=== PATIENT | female | born 1970 | race Caucasian/White ===

== ENCOUNTER → 2018-04-12 | Day surgery (SDC) | payer OTHER ==
[~2018-04-12] MED LIST: FENTANYL CITRATE INJ/PF 250 MCG/5 ML AMPULE ONE; LIDOCAINE 1% INJ-PF (10 MG/ML) 30 ML SDV ONE; MIDAZOLAM 2 MG/2 ML INJ ONE; OXYCODONE-ACETAMINOPHEN 5-325 MG TABLET ONE
[2018-04-12 08:59] LABS: HEMATOCRIT 28.9 % (36.0-47.0); HEMOGLOBIN 9.9 g/dL (12.0-15.5); MEAN CORPUSCULAR HEMOGLOBIN 35.7 pg (27.0-33.4); MEAN CORPUSCULAR HGB CONC 34.2 g/dL (32.0-36.0); MEAN CORPUSCULAR VOLUME 104 fl (80-97); PLATELET COUNT 307 10^3/uL (150-450); RED BLOOD COUNT 2.77 10^6/uL (3.72-5.28); RED CELL DISTRIBUTION WIDTH 14.6 % (11.5-14.0); WHITE BLOOD COUNT 3.1 10^3/uL (4.0-10.5)
[2018-04-12 09:18] LABS: BLOOD UREA NITROGEN 19 mg/dL (7-20)
[2018-04-12 09:26] LABS: INTERNATIONAL RATION (INR) 1.01; PROTHROMBIN TIME 13.8 SEC (11.4-15.4)
[2018-04-12 09:27] LABS: PARTIAL THROMBOPLASTIN TIME 27.5 SEC (23.5-35.8)
--- NOTE | 2018-04-12 13:38 | RADIOLOGY REPORT (SQ) ---
EXAM DESCRIPTION: CT BIOPSY BONE MARROW, NEEDLE; CT NEEDLE PLACEMENT COMPLETED DATE/TIME: 04/12/2018 11:47 am; 04/12/2018 11:46 am REASON FOR STUDY: ANEMIA; ANEMIA, BONE MARROW BIOPSY D63.8 ANEMIA IN OTHER CHRONIC DISEASES CLASSIF IED ELSEWHERE COMPARISON: None. TECHNIQUE: CT guided biopsy of the right iliac crest bone marrow performed with conscious sedation. CT Fluoroscopy Time: 2.[address] scanners at this facility use dose modulation, iterative reconstruction, and/or weight based d osing when appropriate to reduce radiation dose to as low as reasonably achievable (ALARA). [facility]: Dose Right [facility]: CareDose [facility]: Dose Right [facility]: Teradose 4D [facility]: [employer] RADIATION DOSE: mGy. FINDINGS: After obtaining informed consent and explaining the risks and benefits of conscious sedati on,the patient agreed to the procedure. Prior to the procedure, a time out was performed to verify th e patient's identity and planned procedure. IV conscious sedation was administered and physician direction by the registered nurse using 2 millig ivy of Versed and 100 micrograms of fentanyl. Physiologic monitoring was provided before, during, an d after sedation. The total sedation time was 30 minutes. Documentation face to face time, the performing proceduralist, spent monitoring the patient: [address] scanning was performed to localize the percutaneous site for the biopsy approach. After sterile skin prep and local lidocaine for skin and deep tissue anesthesia, a coaxial biopsy nee dle was used to obtain a bone marrow aspirate, and a bone marrow core of tissue. The biopsy tissue wa s received by [facility] lab to be sent out for evaluation. There were no immediate complications. Pathology is pending at the time of dictation. IMPRESSION: CT GUIDED ASPIRATE AND CORE BIOPSY OF THE RIGHT POSTERIOR ILIAC CREST BONE MARROW PERFOR MED WITHOUT IMMEDIATE COMPLICATION. PATHOLOGY PENDING. IV CONSCIOUS SEDATION WITHOUT COMPLICATION. COMMENT: Quality ID 145: Final reports for procedures using fluoroscopy that document radiation exp osure indices, or exposure time and number of fluorographic images (if radiation exposure indices are not available) Patient medication list reviewed: Yes- Quality ID# [id number]:Eligible professional attests to documenting i n the medical record they obtained, updated, or reviewed the patient's current medications.. TECHNICAL DOCUMENTATION: JOB ID: [id number] Quality ID# [id number]: Final reports with documentation of one or more dose reduction techniques (e.g., Aut omated exposure control, adjustment of the mA and/or kV according to patient size, use of iterative r econstruction technique) 2010 [employer]- All Rights Reserved Reading location - IP/workstation name: [email or web address]
--- NOTE | 2018-04-12 13:38 | RADIOLOGY REPORT (SQ) ---
EXAM DESCRIPTION: CT BIOPSY BONE MARROW, NEEDLE; CT NEEDLE PLACEMENT COMPLETED DATE/TIME: 04/12/2018 11:47 am; 04/12/2018 11:46 am REASON FOR STUDY: ANEMIA; ANEMIA, BONE MARROW BIOPSY D63.8 ANEMIA IN OTHER CHRONIC DISEASES CLASSIF IED ELSEWHERE COMPARISON: None. TECHNIQUE: CT guided biopsy of the right iliac crest bone marrow performed with conscious sedation. CT Fluoroscopy Time: 2.[address] scanners at this facility use dose modulation, iterative reconstruction, and/or weight based d osing when appropriate to reduce radiation dose to as low as reasonably achievable (ALARA). [facility]: Dose Right [facility]: CareDose [facility]: Dose Right [facility]: Teradose 4D [facility]: [employer] RADIATION DOSE: mGy. FINDINGS: After obtaining informed consent and explaining the risks and benefits of conscious sedati on,the patient agreed to the procedure. Prior to the procedure, a time out was performed to verify th e patient's identity and planned procedure. IV conscious sedation was administered and physician direction by the registered nurse using 2 millig ivy of Versed and 100 micrograms of fentanyl. Physiologic monitoring was provided before, during, an d after sedation. The total sedation time was 30 minutes. Documentation face to face time, the performing proceduralist, spent monitoring the patient: [address] scanning was performed to localize the percutaneous site for the biopsy approach. After sterile skin prep and local lidocaine for skin and deep tissue anesthesia, a coaxial biopsy nee dle was used to obtain a bone marrow aspirate, and a bone marrow core of tissue. The biopsy tissue wa s received by [facility] lab to be sent out for evaluation. There were no immediate complications. Pathology is pending at the time of dictation. IMPRESSION: CT GUIDED ASPIRATE AND CORE BIOPSY OF THE RIGHT POSTERIOR ILIAC CREST BONE MARROW PERFOR MED WITHOUT IMMEDIATE COMPLICATION. PATHOLOGY PENDING. IV CONSCIOUS SEDATION WITHOUT COMPLICATION. COMMENT: Quality ID 145: Final reports for procedures using fluoroscopy that document radiation exp osure indices, or exposure time and number of fluorographic images (if radiation exposure indices are not available) Patient medication list reviewed: Yes- Quality ID# [id number]:Eligible professional attests to documenting i n the medical record they obtained, updated, or reviewed the patient's current medications.. TECHNICAL DOCUMENTATION: JOB ID: [id number] Quality ID# 436: Final reports with documentation of one or more dose reduction techniques (e.g., Aut omated exposure control, adjustment of the mA and/or kV according to patient size, use of iterative r econstruction technique) 2010 [employer]- All Rights Reserved Reading location - IP/workstation name: [email or web address]
[2018-04-12 14:02] VITALS: BP 114/79
== END ==
LOC: RAD 08:26
PROVIDERS: ATTEND Internal Medicine Medical Oncology
DX: D63.8 Anemia in other chronic diseases classified elsewhere (principal)
CPT/HCPCS: 36415; 84520; 82565; 85027; 85610; 85730; 38221; 77012; J2250; J3010; J3490

== ENCOUNTER 2019-09-04 16:23 | Inpatient (IN) | payer OTHER ==
--- NOTE | 2019-09-04 16:50 | ER Document Report ---
ED Medical Screen (RME) - General Chief Complaint: Chest Pain Stated Complaint: CHEST PAIN/NAUSEA Time Seen by Provider: 09/04/19 16:41 Primary Care Provider: DAVID BUNDY FNP [Primary Care Provider] - Follow up as needed Mode of Arrival: Wheelchair Information source: Patient Notes: 48-year-old female presents emergency department with complaints of full body ac hes and pains chest pain. She reports that she recently discharged herself from [facility]. She reports she was being treated for a staph infection and she is not sure what else. Patient has a PICC line in place with nafcillin running. Patient reports over a week ago she fell and hit her head and took herself to the emergency department the next day. She reports they ran some labs and adm itted her. She reports that she was there for about a week and she is not sure why. Patient reports she felt close that and checked herself out. She is now complaining of full body pain with nausea and vomiting. I have greeted and performed a rapid initial assessment of this patient. A comprehensive ED assessment and evaluation of the patient, analysis of test results and completion of the medical decision making process will be conducted by additional ED providers. TRAVEL OUTSIDE OF THE [place] IN LAST 30 DAYS: No - Related Data Allergies/Adverse Reactions: No Known Allergies Allergy (Verified 08/08/15 10:48) Home Medications: Nafcilin IV Past Medical History - Social History Chew tobacco use (# tins/day): No Frequency of alcohol use: Social Drug Abuse: None - Past Medical History Cardiac Medical History: Reports: Hx Hypercholesterolemia, Hx Hypertension - HX OF, NOT CURRENT Denies: Hx Atrial Fibrillation, Hx Congestive Heart Failure, Hx Coronary Artery Disease, Hx Heart Attack, Hx Peripheral Vascular Disease, Hx Pulmonary Embolism, Hx Heart Murmur Pulmonary Medical History: Reports: Hx Pneumonia - HX OF Denies: Hx Asthma, Hx Bronchitis, Hx COPD, Hx Respiratory Failure, Hx Sleep Apnea, Hx Tuberculosis Neurological Medical History: Denies: Hx Cerebrovascular Accident, Hx Seizures, Hx Parkinson's Disease Endocrine Medical History: Denies: Hx Graves' Disease, Hx Hyperthyroidism, Hx Hypothyroidism Renal/ Medical History: Denies: Hx End Stage Renal Disease, Hx Kidney Stones, Hx Ovarian Cysts, Hx Peritoneal Dialysis, Hx Pelvic Inflammatory Disease Malignancy Medical History: Denies: Hx Breast Cancer, Hx Cervical Cancer, Hx Leukemia, Hx Lung Cancer, Hx Ovarian Cancer GI Medical History: Reports: Hx Gastroesophageal Reflux Disease. Denies: Hx Crohn's Disease, Hx Hepatitis, Hx Hiatal Hernia, Hx Irritable Bowel, Hx Liver Failure, Hx Pancreatitis, Hx Ulcer Musculoskeltal Medical History: Denies Hx Arthritis, Denies Hx Fibromyalgia, Denies Hx Multiple Sclerosis, Denies Hx Muscular Dystrophy, Denies Hx Systemic Lupus Erythematosus Psychiatric Medical History: Reports: Hx Anxiety, Hx Bipolar Disorder, Hx Depression Denies: Hx Dementia, Hx Post Traumatic Stress Disorder, Hx Schizophrenia Traumatic Medical History: Reports: Hx Fractures - LEFT HAND Infectious Medical History: Denies: Hx Hepatitis, Hx HIV Past Surgical History: Reports: Hx Hysterectomy, Hx Orthopedic Surgery - let hip. Denies: Hx Appendectomy, Hx Bowel Surgery, Hx Section, Hx Cholecystectomy, Hx Colostomy, Hx Coronary Artery Bypass Graft, Hx Gastric Bypass Surgery, Hx Herniorrhaphy, Hx Mastectomy, Hx Open Heart Surgery, Hx Pacemaker, Hx Tonsillectomy, Hx Tubal Ligation - Immunizations Hx Diphtheria, Pertussis, Tetanus Vaccination: Yes Doctor's Discharge - Discharge Referrals: DAVID BUNDY FNP [Primary Care Provider] - Follow up as needed
--- NOTE | 2019-09-04 17:46 | RADIOLOGY REPORT (SQ) ---
EXAM DESCRIPTION: CHEST 2 VIEWS COMPLETED DATE/TIME: 09/04/2019 4:24 pm REASON FOR STUDY: chest pain COMPARISON: 08/08/2015 EXAM PARAMETERS: NUMBER OF VIEWS: two views TECHNIQUE: Digital Frontal and Lateral radiographic views of the chest acquired. RADIATION DOSE: NA LIMITATIONS: none FINDINGS: LUNGS AND PLEURA: No opacities, masses or pneumothorax. No pleural effusion. MEDIASTINUM AND HILAR STRUCTURES: No masses or contour abnormalities. HEART AND VASCULAR STRUCTURES: Heart normal size. No evidence for failure. BONES: No acute findings. HARDWARE: None in the chest. OTHER: No other significant finding. IMPRESSION: NO ACUTE RADIOGRAPHIC FINDING IN THE CHEST. TECHNICAL DOCUMENTATION: JOB ID: [id number] [employer]- All Rights Reserved Reading location - IP/workstation name: [id number]
[2019-09-04 18:09] LABS: ABSOLUTE BASOPHILS # (AUTO) 0.1 10^3/uL (0.0-0.2); ABSOLUTE LYMPHOCYTES (AUTO) 1.4 10^3/uL (0.5-4.7); ABSOLUTE MONOCYTES (AUTO) 0.8 10^3/uL (0.1-1.4); ABSOLUTE NEUT (AUTO) 4.1 10^3/uL (1.7-8.2); BASOPHILS % (AUTO) 1.1 % (0-2); EOSINOPHILS % (AUTO) 0.3 % (0-6); HEMATOCRIT 26.1 % (36.0-47.0); HEMOGLOBIN 8.6 g/dL (12.0-15.5); LYMPHOCYTES % (AUTO) 21.4 % (13-45); MEAN CORPUSCULAR HEMOGLOBIN 38.2 pg (27.0-33.4); MEAN CORPUSCULAR HGB CONC 33.1 g/dL (32.0-36.0); MONOCYTES % (AUTO) 13.1 % (3-13); PLATELET COUNT 755 10^3/uL (150-450); RED BLOOD COUNT 2.26 10^6/uL (3.72-5.28); RED CELL DISTRIBUTION WIDTH 15.1 % (11.5-14.0); SEGMENTED NEUTROPHILS % (AUTO) 64.1 % (42-78); TOTAL CELLS COUNTED % (AUTO) 100 %; WHITE BLOOD COUNT 6.4 10^3/uL (4.0-10.5)
[2019-09-04] MEDS ORDERED: ONDANSETRON 4 MG TAB.RAPDIS PO ONE (18:24)
[2019-09-04 18:27] LABS: ALBUMIN 2.6 g/dL (3.5-5.0); ALKALINE PHOSPHATASE 314 U/L (38-126); ANION GAP 11 (5-19); ASPARTATE AMINO TRANSFERASE 53 U/L (14-36); BILIRUBIN,DIRECT 0.9 mg/dL (0.0-0.4); BILIRUBIN,TOTAL 0.9 mg/dL (0.2-1.3); BLOOD UREA NITROGEN 11 mg/dL (7-20); CALCIUM 8.6 mg/dL (8.4-10.2); CARBON DIOXIDE 16 mmol/L (22-30); CHLORIDE 114 mmol/L (98-107); GLUCOSE 83 mg/dL (75-110); POTASSIUM 3.9 mmol/L (3.6-5.0); TOTAL PROTEIN 5.5 g/dL (6.3-8.2)
[2019-09-04 18:32] LABS: ANISOCYTOSIS SLIGHT; PLATELET COMMENT INCREASED
[2019-09-04 18:33] LABS: MEAN CORPUSCULAR VOLUME 115 fl (80-97)
[2019-09-04 18:56] LABS: APPEARANCE,URINE SLIGHTLY-CLOUDY; BILIRUBIN,URINE NEGATIVE (NEGATIVE); COLOR,URINE YELLOW; GLUCOSE, URINE NEGATIVE (NEGATIVE); KETONES,URINE TRACE mg/dL (NEGATIVE); LEUKOCYTE ESTERASE,URINE TRACE (NEGATIVE); NITRITE,URINE NEGATIVE (NEGATIVE); PROTEIN,URINE 30 mg/dL (NEGATIVE); URINE SPECIFIC GRAVITY 1.032; UROBILINOGEN,URINE NEGATIVE mg/dL (<2.0)
--- NOTE | 2019-09-04 19:48 | ER Document Report ---
ED General <LENO PARRISH - Last Filed: 09/05/19 06:12> - General Mode of Arrival: Wheelchair TRAVEL OUTSIDE OF THE [place].S[place] IN LAST 30 DAYS: No - Related Data Home Medications: Nafcilin IV <MARK CONTEH - Last Filed: 09/05/19 10:06> - General Chief Complaint: Chest Pain Stated Complaint: CHEST PAIN/NAUSEA Time Seen by Provider: 09/04/19 16:41 Notes: Patient is a 48-year-old female who presents to the emergency department with a chief complaint of chest pain and nausea. Patient states that she just does not feel right. She was recently admitted to [facility] for a we ek, where they were giving her antibiotics for a "staph infection" as per patient. Patient ended up leaving on her own because she did not have a private room and it gave her anxiety. She is currently on nafcillin at home via PICC line. Patient is a poor historian. (YADYMARK Terrell) - Related Data Allergies/Adverse Reactions: No Known Allergies Allergy (Verified 09/04/19 22:50) Past Medical History - General Information source: Patient - Social History Smoking Status: Never Smoker Chew tobacco use (# tins/day): No Frequency of alcohol use: Social Drug Abuse: None Family History: Reviewed & Not Pertinent Patient has suicidal ideation: No Patient has homicidal ideation: No - Past Medical History Cardiac Medical History: Reports: Hx Hypercholesterolemia, Hx Hypertension - HX OF, NOT CURRENT Denies: Hx Atrial Fibrillation, Hx Congestive Heart Failure, Hx Coronary Artery Disease, Hx Heart Attack, Hx Peripheral Vascular Disease, Hx Pulmonary Embolism, Hx Heart Murmur Pulmonary Medical History: Reports: Hx Pneumonia - HX OF Denies: Hx Asthma, Hx Bronchitis, Hx COPD, Hx Respiratory Failure, Hx Sleep Apnea, Hx Tuberculosis Neurological Medical History: Denies: Hx Cerebrovascular Accident, Hx Seizures, Hx Parkinson's Disease Endocrine Medical History: Denies: Hx Graves' Disease, Hx Hyperthyroidism, Hx Hypothyroidism Renal/ Medical History: Denies: Hx End Stage Renal Disease, Hx Kidney Stones, Hx Ovarian Cysts, Hx Peritoneal Dialysis, Hx Pelvic Inflammatory Disease Malignancy Medical History: Denies: Hx Breast Cancer, Hx Cervical Cancer, Hx Leukemia, Hx Lung Cancer, Hx Ovarian Cancer GI Medical History: Reports: Hx Gastroesophageal Reflux Disease. Denies: Hx Crohn's Disease, Hx Hepatitis, Hx Hiatal Hernia, Hx Irritable Bowel, Hx Liver Failure, Hx Pancreatitis, Hx Ulcer Musculoskeletal Medical History: Denies Hx Arthritis, Denies Hx Fibromyalgia, Denies Hx Multiple Sclerosis, Denies Hx Muscular Dystrophy, Denies Hx Systemic Lupus Erythematosus Psychiatric Medical History: Reports: Hx Anxiety, Hx Bipolar Disorder, Hx Depression Denies: Hx Dementia, Hx Post Traumatic Stress Disorder, Hx Schizophrenia Traumatic Medical History: Reports: Hx Fractures - LEFT HAND Infectious Medical History: Denies: Hx Hepatitis, Hx HIV Past Surgical History: Reports: Hx Hysterectomy, Hx Orthopedic Surgery - let hip. Denies: Hx Appendectomy, Hx Bowel Surgery, Hx Section, Hx Cholecystectomy, Hx Colostomy, Hx Coronary Artery Bypass Graft, Hx Gastric Bypass Surgery, Hx Herniorrhaphy, Hx Mastectomy, Hx Open Heart Surgery, Hx Pacemaker, Hx Tonsillectomy, Hx Tubal Ligation - Immunizations Hx Diphtheria, Pertussis, Tetanus Vaccination: Yes <MARK CONTEH - Last Filed: 09/05/19 10:06> Review of Systems <MARK CONTEH - Last Filed: 09/05/19 10:06> - Review of Systems Notes: REVIEW OF SYSTEMS: CONSTITUTIONAL : Denies recent illness. Denies recent unintentional weight loss. Denies fever, chills, or sweats. EENT: Denies eye, ear, throat, or mouth pain, discharge, or symptoms. Denies nasal or sinus congestion. CARDIOVASCULAR: See HPI. RESPIRATORY: Denies shortness of breath, cough, congestion, difficulty breathing, or wheezing. GASTROINTESTINAL: See HPI. GENITOURINARY: Denies difficulty urinating, burning, blood in urine, urgency or frequency. MUSCULOSKELETAL: Denies neck and back pain. Denies joint pain or swelling. SKIN: Denies rash, itchiness, or lesions HEMATOLOGIC : Denies easy bruising or bleeding. LYMPHATIC: Denies swollen, painful, enlarged glands. NEUROLOGICAL: Denies no numbness or tingling denies weakness. Denies headache. Denies altered mental status. Denies alteration in speech. PSYCHIATRIC: Denies stress, anxiety, alteration in sleep patterns, or depression. All other systems reviewed and negative. (MARK CONTEH) Physical Exam <MARK CONTEH - Last Filed: 09/05/19 10:06> - Vital signs Vitals: Resp BP Pulse Ox 18 126/77 H 100 09/04/19 17:47 09/04/19 17:47 09/04/19 17:47 - Notes Notes: PHYSICAL EXAMINATION: GENERAL: Appears well, healthy, well-nourished, no acute distress. HEAD: Normocephalic, atraumatic. EYES: PERRL, conjunctiva normal, all extraocular movements intact, sclera nonicteric ENT: Moist mucous membranes. NECK: Supple, no noticeable swelling, redness, rash. Normal range of motion. LUNGS: Equal breath sounds bilaterally and clear to auscultation. No wheezes rales or rhonchi. CARDIOVASCULAR: S1-S2, regular rate, regular rhythm. Radial pulses 2+, normal. ABDOMEN: Normoactive bowel sounds. Soft, very tender left lower quadrant, no guarding, no rebound tenderness, and no masses palpated. EXTREMITIES: Normal strength and range of motion, no pitting or edema. No cyanosis. NEUROLOGICAL: Moves all extremities upon command. Strength 5/5 in all extremities. PSYCH: Normal mood, normal affect. SKIN: Warm, dry. No rash, lesions, ulcerations noted. Normal skin turgor. (MARK CONTEH) Course - Laboratory Result Diagrams: 09/04/19 17:44 09/04/19 17:44 <LENO PARRISH - Last Filed: 09/05/19 06:12> - Laboratory Result Diagrams: 09/04/19 17:44 09/04/19 17:44 <MARK CONTEH - Last Filed: 09/05/19 10:06> - Re-evaluation Re-evalutation: 09/05/19 06:[address] Aguilera. Patient is now requesting morphine for her pain. She will be given 4 mg IV morphine with a another liter of fluids while we await for her interventional radiology draining of iliopsoas abscess. (LENO PARRISH) 09/04/19 22:[address] Weiss the orthopedic surgeon on-call here in the emergency department. He is recommending the patient be transferred to [facility], where she had her surgery. 09/04/19 22:40 I spoke with [facility] transfer center and they are at capacity at this time. The orthopedic surgeon will be contacted. Will await callback. 09/04/19 23:[address] Mark, the orthopedic surgeon it application administrator at [facility]. He states she had her hip surgery done in June 2018. He states that this is not an orthopedic issue at this time. Recommending I call . He is recommending interventional radiology to drain the abcess. 09/04/19 23:34 Called [facility] transfer center. Awaiting callback from ED or hospitalist physician. 09/05/19 00:[address] Stephen, the hospitalist physician over at [facility]. She states that the patient was actually discharged on August 31 from their facility. She was in the facility after a fall and was being treated for bacteremia. She apparently has not gone to their follow-up visits. She also states that they do not have interventional radiology in the hospital at [place]. 09/05/19 00:[address] Roth, the hospitalist physician. He states that the patient does not need to be admitted based off her labs. He states that the patient should follow-up outpatient. I discussed this with Dr. Aquino and he is recommending that I speak with [facility]. 09/05/19 01:18 Spoke with [facility] and they are recommending that since we have interventional radiology, that the patient have it done here. Relayed this information on to Dr. Abraham. He is recommending speaking with Dr. Bernardo. 09/05/19 01:30 I have spoke with Dr. Bernardo, the surgeon it application administrator. He is in agreement that the correct course of action is to have the patient admitted to the hospitalist and have IR drain the abcess. He is also recommending that I speak to the radiologist to clarify if it is a hematoma or abcess. 09/05/19 01:[address] Lopez, as Dr. Ruiz is not in at this time. She reviewed the films and states she is leaning toward an abcess, but there is no way to te ll unless it is drained. 09/05/19 02:17 Dr. Aquino spoke with Dr. Roth again and does not want to admit the patient. At this time, the patient will have orders to have IR drain the abscess. Report given to LD Richardson. (MARK CONTEH) - Vital Signs Vital signs: Temp Pulse Resp BP Pulse Ox 98.6 F 19 119/69 100 09/05/19 06:01 09/05/19 09:31 09/05/19 09:31 09/05/19 09:31 - Laboratory Laboratory results interpreted by me: 09/04/19 09/04/19 09/04/19 17:44 17:44 17:44 RBC 2.26 L Hgb 8.6 L Hct 26.1 L MCV 115 H MCH 38.2 H RDW 15.1 H Plt Count 755 H Spink % (Auto) 13.1 H APTT VBG pH VBG pCO2 VBG HCO3 Chloride 114 H Carbon Dioxide 16 L Lactic Acid Direct Bilirubin 0.9 H AST 53 H Alkaline Phosphatase 314 H Creatine Kinase < 20 L Total Protein 5.5 L Albumin 2.6 L Urine Protein Urine Ketones Ur Leukocyte Esterase Urine Ascorbic Acid 09/04/19 09/04/19 09/05/19 18:29 20:55 02:43 RBC Hgb Hct MCV MCH RDW Plt Count Spink % (Auto) APTT 58.4 H VBG pH 7.28 L VBG pCO2 31.6 L VBG HCO3 14.5 L Chloride Carbon Dioxide Lactic Acid Direct Bilirubin AST Alkaline Phosphatase Creatine Kinase Total Protein Albumin Urine Protein 30 H Urine Ketones TRACE H Ur Leukocyte Esterase TRACE H Urine Ascorbic Acid 40 H 09/05/19 08:35 RBC Hgb Hct MCV MCH RDW Plt Count Spink % (Auto) APTT VBG pH VBG pCO2 VBG HCO3 Chloride Carbon Dioxide Lactic Acid < 0.5 L Direct Bilirubin AST Alkaline Phosphatase Creatine Kinase Total Protein Albumin Urine Protein Urine Ketones Ur Leukocyte Esterase Urine Ascorbic Acid Discharge <LENO PARRISH - Last Filed: 09/05/19 06:12> <MARK CONTEH - Last Filed: 09/05/19 10:06> - Discharge Clinical Impression: Iliopsoas abscess on right, Thrombocytosis, Metabolic acidosis Nausea and vomiting Qualifiers: Vomiting type: unspecified Vomiting Intractability: non-intractable Qualified Code(s): R11.2 - Nausea with vomiting, unspecified Condition: Stable Disposition: ADMITTED INPATIENT
[2019-09-04] MEDS ORDERED: NORMAL SALINE 1000 ML 1,000 ML IV ONE (20:02)
[2019-09-04 20:35] LABS: CREATINE KINASE < 20 U/L (30-135)
--- NOTE | 2019-09-04 21:13 | RADIOLOGY REPORT (SQ) ---
EXAM DESCRIPTION: CT ABDOMEN PELVIS WITH IV CONTRAST COMPLETED DATE/TME: 09/04/2019 20:01 CLINICAL HISTORY: 48 years, Female, abdominal tenderness This exam was performed according to our departmental dose-optimization program which includes automated exposure control, adjustment of the mA and/or kVp according to patient size and/or use of iterative reconstruction technique where applicable. FINDINGS: Visualized lung bases are within normal limits. Liver, spleen, pancreas, gallbladder, adrenal glands and kidneys are within normal limits. No hydronephrosis or biliary dilatation. Postoperative changes status post gastric changes. No dilated loops of bowel to suggest obstruction. Mild amount of stool in the colon. No abdominal or pelvic lymphadenopathy. No free fluid or free air. There is a fluid collection in the left iliopsoas muscle measuring about 7 x 5 cm, consistent with abscess. Status post left hip arthroplasty. Pelvic bones are intact. Lumbar vertebral body heights are intact with no significant erosive changes. IMPRESSION: Left iliopsoas abscess is noted.
[2019-09-04 21:23] LABS: VENOUS BLOOD BASE EXCESS -10.9 mmol/L; VENOUS BLOOD HCO3 14.5 mmol/L (20-32); VENOUS BLOOD PCO2 31.6 mmHg (35-63); VENOUS BLOOD PH 7.28 (7.30-7.42)
[2019-09-04] MEDS ORDERED: MORPHINE SULFATE 10 MG/ML INJ IV ONE (21:40)
[2019-09-04] MEDS ORDERED: PIPERACILLIN/TAZOBACTAM 3.375 GM VIAL IV ONE (22:47)
[2019-09-04] MEDS ORDERED: VANCOMYCIN HCL INJ 1000 MG VIAL IV ONE (22:47)
--- NOTE | 2019-09-05 00:17 | EKG REPORT ---
SEVERITY:- BORDERLINE ECG - SINUS RHYTHM BORDERLINE T ABNORMALITIES, INFERIOR LEADS BORDERLINE PROLONGED QT INTERVAL : Confirmed by: Live Villegas 05-Sep-2019 00:17:03
[2019-09-05] MEDS ORDERED: MORPHINE SULFATE 10 MG/ML INJ IV ONE ×2 (02:29→06:09)
[2019-09-05 02:59] LABS: INTERNATIONAL RATION (INR) 1.15; PROTHROMBIN TIME 14.8 SEC (11.4-15.4)
[2019-09-05 03:00] LABS: PARTIAL THROMBOPLASTIN TIME 58.4 SEC (23.5-35.8)
[2019-09-05] MEDS ORDERED: NORMAL SALINE 10 ML SDV (AFTER EACH USE) IV PRN (03:30)
[2019-09-05] MEDS ORDERED: NORMAL SALINE 500 ML IV ONE (06:11)
[2019-09-05] MEDS ORDERED: FENTANYL CITRATE INJ/PF 100 MCG/2 ML AMPUL IV ONE (06:44)
--- NOTE | 2019-09-05 08:45 | ER Document Report ---
ED General - General Chief Complaint: Chest Pain Stated Complaint: CHEST PAIN/NAUSEA Time Seen by Provider: 09/04/19 16:41 Primary Care Provider: DAVID BUNDY FNP [Primary Care Provider] - Follow up as needed Mode of Arrival: Wheelchair TRAVEL OUTSIDE OF THE [place] IN LAST 30 DAYS: No - HPI Notes: Patient is a 48-year-old female who presents to the emergency department for evaluation of chest pain, right flank and back pain, abdominal pain. The pat ient has a complicated recent medical history. She was recently at [facility]. She was admitted for hypotension, septic shock. She was treated for what became an eventual MSSA bacteremia. No obvious source was found. She had a UTI which resolved. When her bacteremia was noted she was put on IV nafcillin, home health is set up. Evidently she left the hospital AGAINST MEDICAL ADVICE. - Related Data Allergies/Adverse Reactions: No Known Allergies Allergy (Verified 09/04/19 22:50) Home Medications: Nafcilin IV Past Medical History - General Information source: Patient - Social History Smoking Status: Never Smoker Chew tobacco use (# tins/day): No Frequency of alcohol use: Heavy - No alcohol in 2 weeks Drug Abuse: None Family History: Reviewed & Not Pertinent Patient has suicidal ideation: No Patient has homicidal ideation: No - Medical History Medical History: Other - Macrocytic anemia - Past Medical History Cardiac Medical History: Reports: Hx Hypercholesterolemia, Hx Hypertension - HX OF, NOT CURRENT Denies: Hx Atrial Fibrillation, Hx Congestive Heart Failure, Hx Coronary Artery Disease, Hx Heart Attack, Hx Peripheral Vascular Disease, Hx Pulmonary Embolism, Hx Heart Murmur Pulmonary Medical History: Reports: Hx Pneumonia - HX OF Denies: Hx Asthma, Hx Bronchitis, Hx COPD, Hx Respiratory Failure, Hx Sleep Apnea, Hx Tuberculosis Neurological Medical History: Denies: Hx Cerebrovascular Accident, Hx Seizures, Hx Parkinson's Disease Endocrine Medical History: Denies: Hx Graves' Disease, Hx Hyperthyroidism, Hx Hypothyroidism Renal/ Medical History: Denies: Hx End Stage Renal Disease, Hx Kidney Stones, Hx Ovarian Cysts, Hx Peritoneal Dialysis, Hx Pelvic Inflammatory Disease Malignancy Medical History: Denies: Hx Breast Cancer, Hx Cervical Cancer, Hx Leukemia, Hx Lung Cancer, Hx Ovarian Cancer GI Medical History: Reports: Hx Gastroesophageal Reflux Disease. Denies: Hx Crohn's Disease, Hx Hepatitis, Hx Hiatal Hernia, Hx Irritable Bowel, Hx Liver Failure, Hx Pancreatitis, Hx Ulcer Musculoskeletal Medical History: Denies Hx Arthritis, Denies Hx Fibromyalgia, Denies Hx Multiple Sclerosis, Denies Hx Muscular Dystrophy, Reports Hx Muscle Weakness - Left foot drop, left hip trochanteric bursitis, Denies Hx Systemic Lupus Erythematosus Psychiatric Medical History: Reports: Hx Anxiety, Hx Bipolar Disorder, Hx Depression Denies: Hx Dementia, Hx Post Traumatic Stress Disorder, Hx Schizophrenia Traumatic Medical History: Reports: Hx Fractures - LEFT HAND Infectious Medical History: Denies: Hx Hepatitis, Hx HIV Past Surgical History: Reports: Hx Hysterectomy, Hx Orthopedic Surgery - let hip. Denies: Hx Appendectomy, Hx Bowel Surgery, Hx Section, Hx Cholecystectomy, Hx Colostomy, Hx Coronary Artery Bypass Graft, Hx Gastric Bypass Surgery, Hx Herniorrhaphy, Hx Mastectomy, Hx Open Heart Surgery, Hx Pacemaker, Hx Tonsillectomy, Hx Tubal Ligation - Immunizations Hx Diphtheria, Pertussis, Tetanus Vaccination: Yes Review of Systems - Review of Systems Constitutional: Chills EENT: No symptoms reported Cardiovascular: See HPI Respiratory: See HPI Gastrointestinal: See HPI Genitourinary: See HPI Female Genitourinary: No symptoms reported Musculoskeletal: See HPI Skin: No symptoms reported Neurological/Psychological: No symptoms reported Physical Exam - Vital signs Vitals: Resp BP Pulse Ox 18 126/77 H 100 09/04/19 17:47 09/04/19 17:47 09/04/19 17:47 - Notes Notes: Is a 48-year-old female who appears her stated age in acute distress. Vital signs reviewed, please refer to chart. Head is normocephalic, atraumatic. Pupils equal round, reactive to light. Neck is supple without meningismus. Heart is regular rate and rhythm. Lungs are clear to auscultation bilaterally. Abdomen is soft, moderately tender throughout the entire right side without rebound or guarding, normoactive bowel sounds throughout. Right CVA tenderness noted. Extremities without cyanosis, clubbing. Posterior calves are nontender. Peripheral pulses are equal. Skin is warm and dry. Patient is awake, alert, cooperative with examiner. Course - Re-evaluation Re-evalutation: 09/05/19 08:51 Patient presented to the emergency department for evaluation. We did receive information and in regards to inpatient care of her at [facility]. The patient had an MSSA bacteremia, was being treated as an outpatient with nafcillin after she left AGAINST MEDICAL ADVICE. The patient has had worsened pain. She has had 4 episodes of nonbloody, nonbilious emesis in the last 24 hours. She is not tolerating all of these antibiotics well either according to the patient. She was originally seen by nurse practitioner [facility]. Imaging revealed a right iliopsoas abscess. This was most amenable to drainage by IR. Please see [employer] note in regards to multiple consultations made in regards to appropriate disposition of this patient. I did speak with Dr. Toney, radiologist who will be performing this interventional his procedure. He is in full agreement with me that this patient does meet admission criteria, will need admission for IV antibiotics and cultures in regards to her abscess. I spoke with Dr. Gibson, who happily accepted the patient. - Vital Signs Vital signs: Temp Pulse Resp BP Pulse Ox 98.6 F 17 113/75 100 09/05/19 06:01 09/05/19 08:30 09/05/19 08:30 09/05/19 08:30 - Laboratory Result Diagrams: 09/04/19 17:44 09/04/19 17:44 Laboratory results interpreted by me: 09/04/19 09/04/19 09/04/19 17:44 17:44 17:44 RBC 2.26 L Hgb 8.6 L Hct 26.1 L MCV 115 H MCH 38.2 H RDW 15.1 H Plt Count 755 H [place] % (Auto) 13.1 H APTT VBG pH VBG pCO2 VBG HCO3 Chloride 114 H Carbon Dioxide 16 L Direct Bilirubin 0.9 H AST 53 H Alkaline Phosphatase 314 H Creatine Kinase < 20 L Total Protein 5.5 L Albumin 2.6 L Urine Protein Urine Ketones Ur Leukocyte Esterase Urine Ascorbic Acid 09/04/19 09/04/19 09/05/19 18:29 20:55 02:43 RBC Hgb Hct MCV MCH RDW Plt Count [place] % (Auto) APTT 58.4 H VBG pH 7.28 L VBG pCO2 31.6 L VBG HCO3 14.5 L Chloride Carbon Dioxide Direct Bilirubin AST Alkaline Phosphatase Creatine Kinase Total Protein Albumin Urine Protein 30 H Urine Ketones TRACE H Ur Leukocyte Esterase TRACE H Urine Ascorbic Acid 40 H - EKG Interpretation by Me Additional EKG results interpreted by me: 09/05/19 08:54 Sinus mechanism with a rate of 97 bpm. Normal axis, borderline QT interval prolongation. Nonspecific ST changes, but no acute changes concerning for infarction. Discharge - Discharge Clinical Impression: Iliopsoas abscess on right, Thrombocytosis, Metabolic acidosis Nausea and vomiting Qualifiers: Vomiting type: unspecified Vomiting Intractability: non-intractable Qualified Code(s): R11.2 - Nausea with vomiting, unspecified Condition: Stable Disposition: ADMITTED INPATIENT Admitting Provider: Paige (Hospitalist) Unit Admitted: IMCU Referrals: DAVID BUNDY FNP [Primary Care Provider] - Follow up as needed
[2019-09-05 09:27] LABS: URINE AMPHETAMINES SCREEN NEGATIVE; URINE BARBITURATES SCREEN NEGATIVE; URINE COCAINE SCREEN NEGATIVE; URINE MARIJUANA (THC) SCREEN NEGATIVE; URINE METHADONE SCREEN NEGATIVE; URINE PHENCYCLIDINE SCREEN NEGATIVE
[2019-09-05 09:31] LABS: URINE BENZODIAZEPINES SCREEN UNCONFIRMED POSITIVE
[2019-09-05] MEDS: NORMAL SALINE 10 ML SDV (SCHEDULED) IV SCH ×2 (09:55→22:42)
[2019-09-05] MEDS ORDERED: MORPHINE SULFATE 10 MG/ML INJ IV PRN (10:10)
[2019-09-05] MEDS ORDERED: KETOROLAC TROMETHAMINE INJ/PF 30 MG/1 ML SDV IV PRN (10:10)
[2019-09-05] MEDS ORDERED: FENTANYL CITRATE INJ/PF 100 MCG/2 ML AMPUL ONE ×2 (10:13→10:32)
[2019-09-05] MEDS ORDERED: MIDAZOLAM 2 MG/2 ML INJ ONE ×2 (10:13→10:32)
--- NOTE | 2019-09-05 11:43 | RADIOLOGY REPORT (SQ) ---
EXAM DESCRIPTION: CT DRAINAGE RETRO/PERITONEAL COMPLETED DATE/TIME: 09/05/2019 11:16 am REASON FOR STUDY: iliopsoas abcess drainage COMPARISON: CT dated 09/04/2019 FLUORO TIME: 4.2 seconds 24 images saved to PACS. LIMITATIONS: None. PROCEDURE: After obtaining informed consent, the patient was brought to the CT suite and was placed supine on the CT gurney. The patient was prepped and draped in the usual sterile fashion . Axial gracie ges were obtained for targeting of theleft psoas abscess. An appropriate access site was selected. I V conscious sedation was administered and physician direction by the registered nurse using 3.0 raymundo grams of Versed and 100 micrograms of fentanyl. Physiologic monitoring was provided before, during, a nd after sedation. The total sedation time was 15 minutes. Documentation face to face time, the performing proceduralist, spent monitoring the patient: 15minute s. The abscess was localized using CT fluoroscopic guidance. 1% lidocaine was used for local anesthesia . Using a 19 gauge vascular access needle the abscess was cannulated. A guidewire was placed sequen tial dilatation performed and a 10 Persian APD catheter placed. Samples were obtained and sent to [facility] for evaluation. There were no complications. Catheter was secured to the skin and connected to accordion drainage bag. IMPRESSION: Successful CT-guided catheter placement for drainage of the left psoas abscess. COMMENT: Patient medication list reviewed:Yes- Quality ID# 130:Eligible professional attests to docu menting in the medical record they obtained, updated, or reviewed the patient's current medications. Quality ID #76: The patient was prepped and draped using maximum sterile barrier technique including cap, mask, sterile gown, sterile gloves, a large sterile sheet, hand hygiene, and 2% Chlorhexidine fo r cutaneous antisepsis. When ultrasound is used, sterile ultrasound techniques are followed requiring sterile gel and sterile probes. Quality ID 145: Final reports for procedures using fluoroscopy that document radiation exposure sloan armando, or exposure time and number of fluorographic images (if radiation exposure indices are not avail able) Quality ID# 436: Final reports with documentation of one or more dose reduction techniques (e.g., Aut omated exposure control, adjustment of the mA and/or kV according to patient size, use of iterative r econstruction technique) TECHNICAL DOCUMENTATION: JOB ID: [id number] [employer] (?)- All Rights Reserved rev-12/09 Reading location - IP/workstation name: [email or web address]
--- NOTE | 2019-09-05 13:04 | PDOC H&P ---
History of Present Illness Admission Date/PCP: 09/05/19 08:58 LD DE LEÓN Patient complains of: abdominal pain History of Present Illness: BRITTNEY GOINS is a 48 year old female with a past medical history of depression and bipolar disorder who presented with increasing abdominal pain. Patient was recently admitted at the [facility]. She apparently left AMA and was discharged with a PICC line and to complete IV nafcillin therapy at home for Staphylococcus bacteremia. She presented to the ER with complaints of " not feeling well" and increasing left lower abdominal pain. She denies fever or chills at home. In the ER, she was noted to have a left psoas abscess. Past Medical History Cardiac Medical History: Reports: Hyperlipidema, Hypertension - HX OF, NOT CURRENT Denies: Atrial Fibrillation, Congestive Heart Failure, Coronary Artery Disease, Myocardial Infarction, Peripheral Vascular Disease, Pulmonary Embolism, Heart Murmur Pulmonary Medical History: Reports: Pneumonia - HX OF Denies: Asthma, Bronchitis, Chronic Obstructive Pulmonary Disease (COPD), Respiratory Failure, Sleep Apnea, Tuberculosis Neurological Medical History: Denies: Seizures Endocrine Medical History: Denies: Hyperthyroidism, Hypothyroidism Renal/ Medical History: Denies: End Stage Renal Disease Malignancy Medical History: Denies: Breast Cancer, Cervical Cancer, Leukemia, Lung Cancer, Ovarian Cancer GI Medical History: Reports: Gastroesophageal Reflux Disease Denies: Crohn's Disease, Hepatitis, Hiatal Hernia Musculoskeltal Medical History: Denies: Arthritis, Fibromyalgia Psychiatric Medical History: Reports: Bipolar Disorder, Depression Denies: Dementia, Post Traumatic Stress Disorder Hematology: Reports: Anemia Denies: Hemophilia, Sickle Cell Disease Infectious Medical History: Denies: HIV Past Surgical History Past Surgical History: Reports: Hysterectomy, Orthopedic Surgery - let hip Denies: Amputation, Appendectomy, Section, Cholecystectomy, Colostomy, Coronary Artery Bypass Graft, Gastric Bypass Surgery, Herniorrhaphy, Mastectomy, Pacemaker, Tonsillectomy, Tubal Ligation Social History Smoking Status: Never Smoker Electronic Cigarette use?: No Hx Recreational Drug Use: No Hx Prescription Drug Abuse: No Family History Family History: Reviewed & Not Pertinent Parental Family History Reviewed: Yes - No premature CAD Children Family History Reviewed: No Sibling(s) Family History Reviewed.: No Medication/Allergy Home Medications: Esomeprazole Magnesium [Nexium] 40 mg PO DAILY 11/01/12 Folic Acid/Multivit,Iron,Milfay [One Daily For Women Tablet] 1 each PO DAILY 11/01/12 Lamotrigine [Lamictal 100 Mg Tablet] 200 mg PO Q12 11/01/12 Zolpidem Tartrate [Ambien 10 mg Tablet] 1 tab PO QHS 11/01/12 B-Complex with Vitamin C [Super B Complex-Vitamin C] 1 each PO DAILY 08/08/15 Cholecalciferol (Vitamin D3) [Vitamin D3 2000 unit Tablet] 2,000 unit PO DAILY 08/08/15 Cranberry [Cranberry 500 mg Capsule] 500 mg PO DAILY 08/08/15 Cyanocobalamin (Vitamin B-12) [Vitamin B12] 2,500 mcg PO DAILY 08/08/15 Iron 65 mg PO DAILY 08/08/15 Methylphenidate HCl [Methylphenidate ER] 20 mg PO 08/08/15 [place]-3 Acid Ethyl Esters [Lovaza 1 gm Capsule] 1 gm PO DAILY 08/08/15 Oxycodone HCl 10 mg PO PRN 08/08/15 Ubidecarenone [Co Q-10] 100 mg PO DAILY 08/08/15 Diazepam [Valium 5 mg Tablet] 5 mg PO BID 09/05/19 Fluoxetine HCl 20 mg PO DAILY 09/05/19 Melatonin mg PO QHS 09/05/19 Naloxone HCl [Narcan] 4 mg NASL ASDIR PRN 09/05/19 Ziprasidone HCl [Geodon 40 mg Capsule] 40 mg PO Q12 09/05/19 Allergies/Adverse Reactions: No Known Allergies Allergy (Verified 09/04/19 22:50) Review of Systems All systems: reviewed and no additional remarkable complaints except as stated - As mentioned in HPI Physical Exam Vital Signs: Temp Pulse Resp BP Pulse Ox 98.6 F 19 119/69 100 09/05/19 06:01 09/05/19 09:31 09/05/19 09:31 09/05/19 09:31 Intake & Output 09/04/19 09/05/19 09/06/19 06:59 06:59 06:59 Intake Total 1000 500 Balance 1000 500 Weight 174 lb 2.643 oz General appearance: PRESENT: no acute distress, well-developed, well-nourished Head exam: PRESENT: atraumatic, normocephalic Eye exam: PRESENT: conjunctiva pink, EOMI, PERRLA. ABSENT: scleral icterus Ear exam: PRESENT: normal external ear exam Mouth exam: PRESENT: moist, tongue midline Neck exam: ABSENT: carotid bruit, JVD, lymphadenopathy, thyromegaly Respiratory exam: PRESENT: clear to auscultation rhona. ABSENT: rales, rhonchi, wheezes Cardiovascular exam: PRESENT: RRR. ABSENT: diastolic murmur, rubs, systolic murmur Pulses: PRESENT: normal dorsalis pedis pul GI/Abdominal exam: PRESENT: normal bowel sounds, soft, tenderness - Direct left lower quadrant tenderness. ABSENT: distended, guarding, mass, organolmegaly, rebound Rectal exam: PRESENT: deferred Extremities exam: PRESENT: full ROM. ABSENT: calf tenderness, clubbing, pedal edema Neurological exam: PRESENT: alert, awake, oriented to person, oriented to place, oriented to time, oriented to situation, CN II-XII grossly intact. ABSENT: motor sensory deficit Results Laboratory Results: 09/04/19 17:44 09/04/19 17:44 09/04/19 09/04/19 09/04/19 17:44 17:44 18:29 WBC 6.4 RBC 2.26 L Hgb 8.6 L Hct 26.1 L MCV 115 H MCH 38.2 H MCHC 33.1 RDW 15.1 H Plt Count 755 H Seg Neutrophils % 64.1 VBG pH VBG pCO2 VBG HCO3 VBG Base Excess Sodium 140.8 Potassium 3.9 Chloride 114 H Carbon Dioxide 16 L Anion Gap 11 BUN 11 Creatinine 0.75 Est GFR ( Amer) > 60 Glucose 83 Lactic Acid Calcium 8.6 Total Bilirubin 0.9 AST 53 H Alkaline Phosphatase 314 H Total Protein 5.5 L Albumin 2.6 L Urine Color YELLOW Urine Appearance SLIGHTLY-CLOUDY Urine pH 5.0 Ur Specific [place] 1.032 Urine Protein 30 H Urine Glucose (UA) NEGATIVE Urine Ketones TRACE H Urine Blood NEGATIVE Urine Nitrite NEGATIVE Ur Leukocyte Esterase TRACE H Urine WBC (Auto) 11 Urine RBC (Auto) 1 09/04/19 09/05/19 20:55 08:35 WBC RBC Hgb Hct MCV MCH MCHC RDW Plt Count Seg Neutrophils % VBG pH 7.28 L VBG pCO2 31.6 L VBG HCO3 14.5 L VBG Base Excess -10.9 Sodium Potassium Chloride Carbon Dioxide Anion Gap BUN Creatinine Est GFR ( Amer) Glucose Lactic Acid < 0.5 L Calcium Total Bilirubin AST Alkaline Phosphatase Total Protein Albumin Urine Color Urine Appearance Urine pH Ur Specific [place] Urine Protein Urine Glucose (UA) Urine Ketones Urine Blood Urine Nitrite Ur Leukocyte Esterase Urine WBC (Auto) Urine RBC (Auto) 09/04/19 09/04/19 17:44 17:44 Creatine Kinase < 20 L Troponin I < 0.012 Impressions: Chest X-Ray 09/04/19 16:47 IMPRESSION: NO ACUTE RADIOGRAPHIC FINDING IN THE CHEST. Abdomen/Pelvis CT 09/04/19 20:01 IMPRESSION: Left iliopsoas abscess is noted. Assessment and Plan - Diagnosis (1) Iliopsoas abscess on left Is this a current diagnosis for this admission?: Yes Plan: Request records from [facility]. Patient is scheduled for drainage by interventional radiology today. Will place patient on Zosyn for now. Will de- escalated antibiotics pending records from the [facility] and culture results. (2) Bipolar disorder Is this a current diagnosis for this admission?: Yes Plan: Resume home meds once verified. - Time Time Spent with patient: 25-34 minutes
[2019-09-05 14:26] LABS: PATH REVIEW PATHOLOGIST REVIEWED
[2019-09-05] MEDS ORDERED: (PENDING PHARMACY ID) (Acetaminophen [Tylenol Extra Strength 500 Mg Tablet] 500 MG) PO PRN (14:26)
[2019-09-05] MEDS ORDERED: ACETAMINOPHEN 325 MG TABLET PO PRN (14:43)
[2019-09-05] MEDS: PIPERACILLIN SODIUM/TAZOBACTAM 3.375 GM in NORMAL SALINE 100 ML IV SCH ×2 (15:16→19:49)
[2019-09-05] MEDS ORDERED: ALTEPLASE INJ 2 MG VIAL (CATH CLEARANCE) IV ONE (18:00)
[2019-09-05] MEDS: HEPARIN SOD (PORCINE) 5,000 UNIT/ML 1 ML VIAL SUBCUT SCH ×2 (18:12→22:39)
[2019-09-05] MEDS: DIAZEPAM 5 MG TABLET PO SCH (18:15)
[2019-09-05] MEDS: OXYCODONE HCL IR 5 MG TABLET PO PRN (20:08)
[2019-09-05] MEDS ORDERED: OXYCODONE HCL SR 10 MG TABLET PO SCH (22:00)
[2019-09-05] MEDS ORDERED: (PENDING PHARMACY ID) (Zolpidem Tartrate [Ambien 10 Mg Tablet] 10 MG) PO SCH (22:00)
[2019-09-05] MEDS: ZOLPIDEM TARTRATE 5 MG TABLET PO SCH ×2 (22:35→22:45)
[2019-09-05] MEDS: MELATONIN 3 MG TABLET PO SCH (22:38)
[2019-09-05] MEDS: ZIPRASIDONE HCL 40 MG CAPSULE PO SCH (22:39)
[2019-09-05] MEDS: LAMOTRIGINE 100 MG TABLET PO SCH (22:40)
[2019-09-06] MEDS: PIPERACILLIN SODIUM/TAZOBACTAM 3.375 GM in NORMAL SALINE 100 ML IV SCH ×5 (00:54→23:26)
[2019-09-06] MEDS: HEPARIN SOD (PORCINE) 5,000 UNIT/ML 1 ML VIAL SUBCUT SCH ×3 (05:48→23:25)
[2019-09-06] MEDS: PANTOPRAZOLE SODIUM 40 MG TABLET.DR PO SCH (05:48)
[2019-09-06] MEDS: OXYCODONE HCL IR 5 MG TABLET PO PRN ×2 (05:51→18:36)
[2019-09-06] MEDS ORDERED: METHYLPHENIDATE HCL 20 MG PO SCH (06:00)
[2019-09-06 06:21] LABS: ABSOLUTE LYMPHOCYTES (AUTO) 1.4 10^3/uL (0.5-4.7); ABSOLUTE MONOCYTES (AUTO) 0.5 10^3/uL (0.1-1.4); ABSOLUTE NEUT (AUTO) 1.4 10^3/uL (1.7-8.2); BASOPHILS % (AUTO) 1.5 % (0-2); EOSINOPHILS % (AUTO) 1.2 % (0-6); LYMPHOCYTES % (AUTO) 41.3 % (13-45); MEAN CORPUSCULAR HEMOGLOBIN 37.8 pg (27.0-33.4); MEAN CORPUSCULAR HGB CONC 32.7 g/dL (32.0-36.0); MEAN CORPUSCULAR VOLUME 116 fl (80-97); MONOCYTES % (AUTO) 14.9 % (3-13); PLATELET COUNT 776 10^3/uL (150-450); RED BLOOD COUNT 2.08 10^6/uL (3.72-5.28); RED CELL DISTRIBUTION WIDTH 15.5 % (11.5-14.0); SEGMENTED NEUTROPHILS % (AUTO) 41.1 % (42-78); TOTAL CELLS COUNTED % (AUTO) 100 %; WHITE BLOOD COUNT 3.3 10^3/uL (4.0-10.5)
[2019-09-06 06:35] LABS: ALBUMIN 2.4 g/dL (3.5-5.0); ALKALINE PHOSPHATASE 253 U/L (38-126); ANION GAP 11 (5-19); ASPARTATE AMINO TRANSFERASE 19 U/L (14-36); BILIRUBIN,DIRECT 0.6 mg/dL (0.0-0.4); BILIRUBIN,TOTAL 0.6 mg/dL (0.2-1.3); BLOOD UREA NITROGEN 5 mg/dL (7-20); CALCIUM 8.7 mg/dL (8.4-10.2); CARBON DIOXIDE 15 mmol/L (22-30); CHLORIDE 115 mmol/L (98-107); POTASSIUM 4.2 mmol/L (3.6-5.0); TOTAL PROTEIN 5.1 g/dL (6.3-8.2)
[2019-09-06 06:40] LABS: GLUCOSE 65 mg/dL (75-110)
[2019-09-06 07:05] LABS: HEMOGLOBIN 7.9 g/dL (12.0-15.5)
[2019-09-06 07:09] LABS: ANISOCYTOSIS SLIGHT
[2019-09-06 07:11] LABS: PLATELET COMMENT INCREASED; TEAR DROP CELLS SLIGHT
[2019-09-06] MEDS: NORMAL SALINE 1000 ML 1,000 ML IV PRN ×2 (09:15→09:19)
[2019-09-06] MEDS: CYANOCOBALAMIN (VITAMIN B-12) 1,000 MCG TABLET PO SCH (09:19)
[2019-09-06] MEDS: LAMOTRIGINE 100 MG TABLET PO SCH ×2 (09:19→23:20)
[2019-09-06] MEDS: DOCUSATE SODIUM 100 MG CAPSULE PO SCH (09:20)
[2019-09-06] MEDS: NORMAL SALINE 10 ML SDV (SCHEDULED) IV SCH ×2 (09:21→23:06)
[2019-09-06] MEDS: ASCORBIC ACID 500 MG TABLET PO SCH (09:21)
[2019-09-06] MEDS: FLUOXETINE HCL 20 MG CAPSULE PO SCH (09:21)
[2019-09-06] MEDS: DIAZEPAM 5 MG TABLET PO SCH ×2 (09:21→18:28)
[2019-09-06] MEDS ORDERED: CRANBERRY 500 MG PO SCH (10:00)
[2019-09-06] MEDS ORDERED: (PENDING PHARMACY ID) (Cyanocobalamin (Vitamin B-12) [Vitamin B12] 2,500 MCG) PO SCH (10:00)
[2019-09-06] MEDS ORDERED: (PENDING PHARMACY ID) (Ubidecarenone [Co Q-10] 100 MG) PO SCH (10:00)
[2019-09-06] MEDS ORDERED: INFLUENZA QUAD (6MOS+) 2019-20 VAC 0.5 ML SYR IM ONE (10:11)
[2019-09-06] MEDS: ZIPRASIDONE HCL 40 MG CAPSULE PO SCH ×2 (11:48→23:28)
--- NOTE | 2019-09-06 18:01 | PDOC PROGRESS REPORT ---
Subjective Progress Note for:: 09/06/19 Subjective:: This is a 48-year-old female who was admitted for a left iliopsoas abscess. Patient underwent drainage by IR yesterday. No acute event overnight. She feels much better today. Denies chest pain or shortness of breath. On encounter this morning, drainage appears to be serosanguineous. Cultures pending. Reviewed records for [facility]. She was thought to have urinary tract infection during her recent course. She grew staph aureus on the blood but I do not see the results of sensitivity. She also had a TTE and a MARCELLA which were negative for vegetations. Reason For Visit: PSOAS ABSCESS Physical Exam Vital Signs: Temp Pulse Resp BP Pulse Ox 98.8 F 89 18 93/52 L 100 09/06/19 08:08 09/06/19 08:08 09/06/19 08:08 09/06/19 08:08 09/06/19 08:08 Intake & Output 09/05/19 09/06/19 09/07/19 06:59 06:59 06:59 Intake Total 1000 1617 527 Output Total 830 Balance 1000 787 527 Weight 174 lb 2.643 oz 155 lb 13.869 oz General appearance: PRESENT: no acute distress, well-developed, well-nourished Head exam: PRESENT: atraumatic, normocephalic Eye exam: PRESENT: conjunctiva pink, EOMI, PERRLA. ABSENT: scleral icterus Ear exam: PRESENT: normal external ear exam Mouth exam: PRESENT: moist, tongue midline Neck exam: ABSENT: carotid bruit, JVD, lymphadenopathy, thyromegaly Respiratory exam: PRESENT: clear to auscultation rhona. ABSENT: rales, rhonchi, wheezes Cardiovascular exam: PRESENT: RRR. ABSENT: diastolic murmur, rubs, systolic murmur Pulses: PRESENT: normal dorsalis pedis pul GI/Abdominal exam: PRESENT: normal bowel sounds, soft. ABSENT: distended, guarding, mass, organolmegaly, rebound, tenderness Rectal exam: PRESENT: deferred Extremities exam: PRESENT: full ROM. ABSENT: calf tenderness, clubbing, pedal e terrell Neurological exam: PRESENT: alert, awake, oriented to person, oriented to place, oriented to time, oriented to situation, CN II-XII grossly intact. ABSENT: motor sensory deficit Results Laboratory Results: 09/06/19 05:49 09/06/19 05:49 09/06/19 09/06/19 05:49 05:49 WBC 3.3 L RBC 2.08 L Hgb 7.9 L Hct 24.0 L MCV 116 H MCH 37.8 H MCHC 32.7 RDW 15.5 H Plt Count 776 H Seg Neutrophils % 41.1 L Sodium 140.9 Potassium 4.2 Chloride 115 H Carbon Dioxide 15 L Anion Gap 11 BUN 5 L Creatinine 0.66 Est GFR ( Amer) > 60 Glucose 65 L Calcium 8.7 Total Bilirubin 0.6 AST 19 Alkaline Phosphatase 253 H Total Protein 5.1 L Albumin 2.4 L 09/04/19 18:29 Clean Catch Midstream Urine Culture - Final C.albicans/C.dubliniensis 09/04/19 09/04/19 17:44 17:44 Creatine Kinase < 20 L Troponin I < 0.012 Impressions: Chest X-Ray 09/04/19 16:47 IMPRESSION: NO ACUTE RADIOGRAPHIC FINDING IN THE CHEST. Abdomen/Pelvis CT 09/04/19 20:01 IMPRESSION: Left iliopsoas abscess is noted. Retroperitoneal Abscess Drainage 09/05/19 00:00 IMPRESSION: Successful CT-guided catheter placement for drainage of the left psoas abscess. Assessment and Plan - Diagnosis (1) Iliopsoas abscess on left Is this a current diagnosis for this admission?: Yes Plan: S/P Drainage by IR. Masood Valencia. Cultures pending. Will also await for further ID recommendations. (2) Bipolar disorder Is this a current diagnosis for this admission?: Yes Plan: Resumed home meds. (3) Staphylococcus aureus bacteremia Is this a current diagnosis for this admission?: Yes Plan: Follow up on sensitivity report.
[2019-09-06] MEDS: MELATONIN 3 MG TABLET PO SCH (23:20)
[2019-09-06] MEDS: ZOLPIDEM TARTRATE 5 MG TABLET PO SCH (23:27)
[2019-09-07] MEDS: NORMAL SALINE 1000 ML 1,000 ML IV PRN (02:38)
[2019-09-07] MEDS: PIPERACILLIN SODIUM/TAZOBACTAM 3.375 GM in NORMAL SALINE 100 ML IV SCH ×4 (06:31→23:01)
[2019-09-07] MEDS: HEPARIN SOD (PORCINE) 5,000 UNIT/ML 1 ML VIAL SUBCUT SCH ×3 (06:32→22:52)
[2019-09-07] MEDS: PANTOPRAZOLE SODIUM 40 MG TABLET.DR PO SCH (06:33)
[2019-09-07] MEDS: OXYCODONE HCL IR 5 MG TABLET PO PRN ×2 (06:41→22:52)
[2019-09-07 07:56] LABS: ABSOLUTE EOSINOPHILS # (AUTO) 0.1 10^3/uL (0.0-0.6); ABSOLUTE LYMPHOCYTES (AUTO) 1.7 10^3/uL (0.5-4.7); ABSOLUTE MONOCYTES (AUTO) 0.4 10^3/uL (0.1-1.4); ABSOLUTE NEUT (AUTO) 1.1 10^3/uL (1.7-8.2); EOSINOPHILS % (AUTO) 1.9 % (0-6); HEMATOCRIT 22.1 % (36.0-47.0); LYMPHOCYTES % (AUTO) 51.8 % (13-45); MEAN CORPUSCULAR HGB CONC 31.7 g/dL (32.0-36.0); MEAN CORPUSCULAR VOLUME 117 fl (80-97); MONOCYTES % (AUTO) 12.4 % (3-13); PLATELET COUNT 749 10^3/uL (150-450); RED BLOOD COUNT 1.89 10^6/uL (3.72-5.28); RED CELL DISTRIBUTION WIDTH 15.6 % (11.5-14.0); SEGMENTED NEUTROPHILS % (AUTO) 32.9 % (42-78); TOTAL CELLS COUNTED % (AUTO) 100 %; WHITE BLOOD COUNT 3.2 10^3/uL (4.0-10.5)
[2019-09-07 08:12] LABS: ALBUMIN 2.1 g/dL (3.5-5.0); ALKALINE PHOSPHATASE 198 U/L (38-126); ANION GAP 9 (5-19); ASPARTATE AMINO TRANSFERASE 14 U/L (14-36); BILIRUBIN,DIRECT 0.5 mg/dL (0.0-0.4); BILIRUBIN,TOTAL 0.5 mg/dL (0.2-1.3); BLOOD UREA NITROGEN 5 mg/dL (7-20); CALCIUM 8.2 mg/dL (8.4-10.2); CARBON DIOXIDE 16 mmol/L (22-30); CHLORIDE 117 mmol/L (98-107); GLUCOSE 74 mg/dL (75-110); POTASSIUM 3.8 mmol/L (3.6-5.0); TOTAL PROTEIN 4.6 g/dL (6.3-8.2)
[2019-09-07 08:41] LABS: ANISOCYTOSIS SLIGHT; TOXIC VACUOLATION PRESENT
[2019-09-07 08:42] LABS: OVALOCYTES SLIGHT; PLATELET COMMENT INCREASED; POLYCHROMASIA SLIGHT; TEAR DROP CELLS SLIGHT
[2019-09-07] MEDS ORDERED: NORMAL SALINE 250 ML IV PRN ×2 (08:52)
--- NOTE | 2019-09-07 11:06 | Progress Note ---
Provider Note Provider Note: ID Telephone Consultation Note Asked by Dr. Gibson and Pharmacy to review patient's chart. Pt not seen or examined. Ms. Li Hernandez is a 48-year-old woman with PMH including s/p L hip arthroplasty who presented to [facility] on with increasing abdominal pain per H&P on 09/05/19. She was recently hospitalized at the [facility] with MSSA bacteremia suspected to be secondary from skin/soft tissue infection prior to leaving [place]. Records available to me from the [facility] are limited but included recommendations to complete 6 weeks of IV nafcillin at home. Blood cultures cleared on 08/29/19 prior to PICC placement. In the [facility] ED, she had CT abd/pelvis with IV contrast to evaluate abdominal/flank tenderness, which revealed a L iliopsoas collection 7 x 5 cm c/w abscess, and IR guided drainage was performed. Repeat blood cultures were obtained at [facility], which have been negative. Impression/Recommendations Psoas abscess secondary to complicated MSSA bacteremia in presence of L hip arthroplasty - With negative blood cultures, it would be reasonable to switch patient back to antimicrobial therapy targeted toward the MSSA alone. Can return to nafcillin 2 g q4h or 12 grams as a continuous infusion. - Psoas abscesses can be primary or secondary, arising hematogenously and seeding only the psoas abscess, but this is more common in developing countries and young adults. More often, psoas abscess raises concern that it has developed secondarily from a contiguous site, most commonly vertebral osteomy elitis/discitis and some notes include pt reporting back pain. Is pt able to undergo MRI with contrast to evaluate further? - The other potential area of concern is her L hip prosthesis. Psoas abscess can arise in association with SPIKE infection, seeded from the bacteremia. Suggest Orthopedic Surgery evaluation. - Would plan for at least 6 weeks of IV antistaphylococcal therapy as previously noted. Tentative end date 10/17/19. However, in some circumstances extending antibiotic course to 8 weeks or longer is needed based on adequacy of source control and re-evaluation. John Zepeda MD [facility] Infectious Diseases pager [phone]
[2019-09-07] MEDS: CYANOCOBALAMIN (VITAMIN B-12) 1,000 MCG TABLET PO SCH (11:18)
[2019-09-07] MEDS: DOCUSATE SODIUM 100 MG CAPSULE PO SCH (11:18)
[2019-09-07] MEDS: FLUOXETINE HCL 20 MG CAPSULE PO SCH (11:20)
[2019-09-07] MEDS: LAMOTRIGINE 100 MG TABLET PO SCH ×2 (11:21→22:51)
[2019-09-07] MEDS: ASCORBIC ACID 500 MG TABLET PO SCH (11:21)
[2019-09-07] MEDS: ZIPRASIDONE HCL 40 MG CAPSULE PO SCH ×2 (11:21→22:52)
[2019-09-07] MEDS: DIAZEPAM 5 MG TABLET PO SCH ×2 (11:21→17:40)
[2019-09-07] MEDS: NORMAL SALINE 10 ML SDV (SCHEDULED) IV SCH ×2 (11:22→22:54)
--- NOTE | 2019-09-07 13:02 | RADIOLOGY REPORT (SQ) ---
EXAM DESCRIPTION: CT ABD/PELVIS WITH IV ONLY COMPLETED DATE/TIME: 09/07/2019 9:25 am REASON FOR STUDY: psoas abscess S/P drainage by IR COMPARISON: 09/04/2019 TECHNIQUE: CT scan of the abdomen and pelvis performed using helical scanning technique with dynamic intravenous contrast injection. No oral contrast. Images reviewed with lung, soft tissue, and bone windows. Reconstructed coronal and sagittal MPR images reviewed. Delayed images for evaluation of the urinary system also acquired. All images stored on PACS. All CT scanners at this facility use dose modulation, iterative reconstruction, and/or weight based d osing when appropriate to reduce radiation dose to as low as reasonably achievable (ALARA). [facility]: Dose Right [facility]: CareDose [facility]: Dose Right [facility]: Teradose 4D [facility]: [employer] CONTRAST TYPE AND DOSE: contrast/concentration: Isovue 350.00 mg/ml; Total Contrast Delivered: 82.0 ml; Total Saline Delivered: 68.0 ml RENAL FUNCTION: GFR > 60. RADIATION DOSE: CT Rad equipment meets quality standard of care and radiation dose reduction techniq ues were employed. CTDIvol: 11.2 - 11.2 mGy. DLP: 1204 mGy-cm.. LIMITATIONS: None. FINDINGS: There has been interval placement of a percutaneous drain into the left iliopsoas fluid co llection from an anterior approach. Fluid collection is largely evacuated. No active hemorrhage. Trace pleural effusions. The appearance is otherwise unchanged. IMPRESSION: Successful drainage of iliopsoas fluid collection status post placement of percutaneous drain. TECHNICAL DOCUMENTATION: JOB ID: [id number] Quality ID # [id number]: Final reports with documentation of one or more dose reduction techniques (e.g., Au tomated exposure control, adjustment of the mA and/or kV according to patient size, use of iterative reconstruction technique) 2010 [employer]- All Rights Reserved Reading location - IP/workstation name: [email or web address]
--- NOTE | 2019-09-07 17:13 | PDOC PROGRESS REPORT ---
Subjective Progress Note for:: 09/07/19 Subjective:: This is a 48-year-old female who was admitted for a left iliopsoas abscess. Patient underwent drainage by IR yesterday. 09/06: She feels much better today. Denies chest pain or shortness of breath. On encounter this morning, drainage appears to be serosanguineous. Cultures pending. Reviewed records for [facility]. She was thought to have urinary tract infection during her recent course. She grew staph aureus on the blood but I do not see the results of sensitivity. She also had a TTE and a MARCELLA which were negative for vegetations. 09/07: No acute event overnight. She says she continues to feel better and her abdominal pain has significantly improved. Repeat CT today and will have IR re- evaluate for possible removal of drain. Reason For Visit: PSOAS ABSCESS Physical Exam Vital Signs: Temp Pulse Resp BP Pulse Ox 98.3 F 77 17 125/77 100 09/07/19 14:12 09/07/19 14:12 09/07/19 14:12 09/07/19 14:12 09/07/19 14:12 Intake & Output 09/06/19 09/07/19 09/08/19 06:59 06:59 06:59 Intake Total 1617 2187 436 Output Total 830 50 Balance 787 2137 436 Weight 155 lb 13.869 oz 158 lb 4.67 oz General appearance: PRESENT: no acute distress, well-developed, well-nourished Head exam: PRESENT: atraumatic, normocephalic Eye exam: PRESENT: conjunctiva pink, EOMI, PERRLA. ABSENT: scleral icterus Ear exam: PRESENT: normal external ear exam Mouth exam: PRESENT: moist, tongue midline Neck exam: ABSENT: carotid bruit, JVD, lymphadenopathy, thyromegaly Respiratory exam: PRESENT: clear to auscultation rhona. ABSENT: rales, rhonchi, wheezes Cardiovascular exam: PRESENT: RRR. ABSENT: diastolic murmur, rubs, systolic murmur Pulses: PRESENT: normal dorsalis pedis pul GI/Abdominal exam: PRESENT: normal bowel sounds, soft, other - + drain. ABSENT: distended, guarding, mass, organolmegaly, rebound Rectal exam: PRESENT: deferred Neurological exam: PRESENT: alert, awake, oriented to person, oriented to place, oriented to time, oriented to situation, CN II-XII grossly intact. ABSENT: motor sensory deficit Results Laboratory Results: 09/07/19 07:25 09/07/19 07:25 09/07/19 09/07/19 09/07/19 07:25 07:25 10:29 WBC 3.2 L RBC 1.89 L Hgb 7.0 L Hct 22.1 L MCV 117 H MCH 37.0 H MCHC 31.7 L RDW 15.6 H Plt Count 749 H Seg Neutrophils % 32.9 L Sodium 141.5 Potassium 3.8 Chloride 117 H Carbon Dioxide 16 L Anion Gap 9 BUN 5 L Creatinine 0.74 Est GFR ( Amer) > 60 Glucose 74 L Calcium 8.2 L Total Bilirubin 0.5 AST 14 Alkaline Phosphatase 198 H Total Protein 4.6 L Albumin 2.1 L Blood Type O NEGATIVE Antibody Screen NEGATIVE 09/04/19 18:29 Clean Catch Midstream Urine Culture - Final C.albicans/C.dubliniensis 09/04/19 09/04/19 17:44 17:44 Creatine Kinase < 20 L Troponin I < 0.012 Impressions: Chest X-Ray 09/04/19 16:47 IMPRESSION: NO ACUTE RADIOGRAPHIC FINDING IN THE CHEST. Retroperitoneal Abscess Drainage 09/05/19 00:00 IMPRESSION: Successful CT-guided catheter placement for drainage of the left psoas abscess. Abdomen/Pelvis CT 09/07/19 07:00 IMPRESSION: Successful drainage of iliopsoas fluid collection status post placement of percutaneous drain. Assessment and Plan - Diagnosis (1) Iliopsoas abscess on left Is this a current diagnosis for this admission?: Yes Plan: S/P Drainage by IR. Masood Valencia. Cultures pending. Will also await for further ID recommendations. 09/07: Repeat CT today and will have IR re-evaluate for possible removal of dick in. (2) Bipolar disorder Is this a current diagnosis for this admission?: Yes Plan: Resumed home meds. (3) Staphylococcus aureus bacteremia Is this a current diagnosis for this admission?: Yes Plan: Follow up on sensitivity report. - Time Time Spent with patient: 25-34 minutes
--- NOTE | 2019-09-07 19:10 | RADIOLOGY REPORT (SQ) ---
EXAM DESCRIPTION: PELVIS AP COMPLETED DATE/TIME: 09/07/2019 6:57 pm REASON FOR STUDY: eval of prosthesis left hip COMPARISON: None. NUMBER OF VIEWS: Two views. TECHNIQUE: Digital radiographic images of the pelvis post-procedure LIMITATIONS: None. FINDINGS: BONES: No worrisome or unexpected findings post-procedure. DEVICE: Left total hip arthroplasty. SOFT TISSUES: No worrisome findings. Expected postoperative soft tissue changes. Drain overlying lef t lower quadrant. IMPRESSION: SATISFACTORY POSTOPERATIVE PELVIS. TECHNICAL DOCUMENTATION: JOB ID: [id number] [employer]- All Rights Reserved Reading location - IP/workstation name: [email or web address]
[2019-09-07 20:19] LABS: HEMATOCRIT 23.9 % (36.0-47.0); HEMOGLOBIN 8.1 g/dL (12.0-15.5); MEAN CORPUSCULAR HEMOGLOBIN 37.1 pg (27.0-33.4); MEAN CORPUSCULAR HGB CONC 33.8 g/dL (32.0-36.0); PLATELET COUNT 767 10^3/uL (150-450); RED BLOOD COUNT 2.18 10^6/uL (3.72-5.28); RED CELL DISTRIBUTION WIDTH 20.7 % (11.5-14.0)
[2019-09-07 20:24] LABS: MEAN CORPUSCULAR VOLUME 110 fl (80-97)
[2019-09-07 20:46] LABS: ABSOLUTE LYMPHOCYTES# (MANUAL) 2.3 10^3/uL (0.5-4.7); ABSOLUTE MONOCYTES # (MANUAL) 0.2 10^3/uL (0.1-1.4); ANISOCYTOSIS 2+; BASOPHILS % (MANUAL) 0 % (0-2); EOSINOPHILS % (MANUAL) 3 % (0-6); HYPOCHROMASIA SLIGHT; LYMPHOCYTES % (MANUAL) 58 % (13-45); MONOCYTES % (MANUAL) 6 % (3-13); SEGMENTED NEUTROPHILS % (MAN) 33 % (42-78); TOTAL CELLS COUNTED 100
[2019-09-07 20:47] LABS: PLATELET COMMENT INCREASED
[2019-09-07] MEDS: MELATONIN 3 MG TABLET PO SCH (22:50)
[2019-09-07] MEDS: ZOLPIDEM TARTRATE 5 MG TABLET PO SCH (22:50)
--- NOTE | 2019-09-08 02:56 | RADIOLOGY REPORT (SQ) ---
MRI cervical spine without contrast on 09/07/2019 at 10:31 PM CLINICAL INDICATION: Iliopsoas abscess, evaluate for vertebral osteomyelitis/abscess TECHNIQUE: Multiplanar, multisequence MR images are obtained throughout the cervical spine without the administration of contrast. This examination was performed on a 1.5 Adelaide magnet. COMPARISON: CT from 02/17/2015 FINDINGS: There is mild disc desiccation and early degeneration of the cervical disks. There is a normal appearance of the craniovertebral junction. There is normal signal within the substance of the cord. There is no prevertebral soft tissue swelling. Minimal degenerative endplate changes are noted at C3-4 and C4-5. Vertebral body height, alignment and signal intensity is otherwise unremarkable. At the C3-4 level, mild broad-based disc osteophyte complex produces minimal canal stenosis. At the C4-5 level, broad-based disc osteophyte complex produces mild to moderate canal stenosis and left greater than right foraminal narrowing. At the C5-6 level, broad-based disc osteophyte complex produces mild to moderate canal stenosis and bilateral foraminal narrowing. No other levels of canal stenosis or foraminal narrowing are noted. IMPRESSION: Degenerative disc disease worse at C4-5 and C5-6 as above. No evidence to suggest discitis or osteomyelitis is noted in the cervical spine.
[2019-09-08] MEDS: PIPERACILLIN SODIUM/TAZOBACTAM 3.375 GM in NORMAL SALINE 100 ML IV SCH (06:35)
[2019-09-08] MEDS: PANTOPRAZOLE SODIUM 40 MG TABLET.DR PO SCH (06:36)
[2019-09-08] MEDS: HEPARIN SOD (PORCINE) 5,000 UNIT/ML 1 ML VIAL SUBCUT SCH ×3 (06:36→22:45)
[2019-09-08] MEDS: LAMOTRIGINE 100 MG TABLET PO SCH ×2 (09:00→22:45)
[2019-09-08] MEDS: CYANOCOBALAMIN (VITAMIN B-12) 1,000 MCG TABLET PO SCH (09:28)
[2019-09-08] MEDS: FLUOXETINE HCL 20 MG CAPSULE PO SCH (09:29)
[2019-09-08] MEDS: ASCORBIC ACID 500 MG TABLET PO SCH (09:30)
[2019-09-08] MEDS: DOCUSATE SODIUM 100 MG CAPSULE PO SCH (09:31)
[2019-09-08] MEDS: DIAZEPAM 5 MG TABLET PO SCH ×2 (09:31→17:30)
[2019-09-08] MEDS: ZIPRASIDONE HCL 40 MG CAPSULE PO SCH ×2 (09:34→22:45)
[2019-09-08] MEDS: OXYCODONE HCL IR 5 MG TABLET PO PRN ×2 (09:38→23:11)
[2019-09-08] MEDS: NORMAL SALINE 10 ML SDV (SCHEDULED) IV SCH ×2 (10:15→22:00)
--- NOTE | 2019-09-08 10:22 | RADIOLOGY REPORT (SQ) ---
EXAM DESCRIPTION: MRI THORACIC SPINE WITHOUT COMPLETED DATE/TIME: 09/07/2019 10:46 pm REASON FOR STUDY: iliopsoas abscess, r/o vertebral osteo/abscess COMPARISON: None. TECHNIQUE: Sagittal and Axial imaging includes T1, T2, STIR and gradient echo sequences. LIMITATIONS: Motion artifact. FINDINGS: LOCALIZER: No worrisome findings. ALIGNMENT: Normal. VERTEBRAE: Intact. BONE MARROW: Normal. No marrow replacement or reactive changes. HARDWARE: None in the spine. CORD: Normal in size and signal intensity. SOFT TISSUES: Small pleural effusions. THORACIC DISCS T1-T12: Several bulging disc in the lower thoracic spine. No evidence of disc herniat ion or cord compression. LOWER CERVICAL: See separate report. UPPER LUMBAR: See separate report. OTHER: No other significant finding. IMPRESSION: No acute findings. No evidence of osteomyelitis or abscess. TECHNICAL DOCUMENTATION: JOB ID: [id number] [employer]- All Rights Reserved Reading location - IP/workstation name: [email or web address]
--- NOTE | 2019-09-08 10:36 | RADIOLOGY REPORT (SQ) ---
EXAM DESCRIPTION: MRI LUMBAR SPINE WITHOUT COMPLETED DATE/TIME: 09/07/2019 10:46 pm REASON FOR STUDY: iliopsoas abscess, r/o vertebral osteo/abscess COMPARISON: None. TECHNIQUE: Sagittal and Axial imaging includes T1, T2, STIR and gradient echo sequences. Coronal T2/ HASTE imaging. LIMITATIONS: None. FINDINGS: VISUALIZED UPPER ABDOMEN: Limited evaluation. No acute or suspicious findings suggested. SEGMENTATION: No transitional anatomy. The lowest well-developed disc space is labeled L5-S1. ALIGNMENT: Anatomic. VERTEBRAE: Intact. BONE MARROW: Normal. No marrow replacement or reactive changes. DISC SIGNAL: Desiccation multiple levels. POSTERIOR ELEMENTS: Generally intact. No pars defect evident. HARDWARE: None in the spine. CORD AND CONUS: Normal in size and signal intensity. Conus at the appropriate level. SOFT TISSUES: Edema in the left iliopsoas muscle. No organized fluid collection. L1-L2: Disc bulge. No significant stenosis. L2-L3: Disc bulge. No significant stenosis. L3-L4: Mild spinal stenosis due to central annular fissure. L4-L5: Mild spinal stenosis due to central annular fissure and facet arthropathy. L5-S1: Central annular fissure and facet arthropathy. No significant spinal stenosis. LOWER THORACIC: See separate report. SACRUM: Visualized upper sacrum intact. OTHER: No other significant findings. IMPRESSION: No evidence of osteomyelitis. Spondylosis and facet arthropathy. Mild spinal stenosis. TECHNICAL DOCUMENTATION: JOB ID: [id number] [employer]- All Rights Reserved Reading location - IP/workstation name: [email or web address]
--- NOTE | 2019-09-08 12:52 | Progress Note ---
Provider Note Provider Note: ID Telephone Consult Follow Up Note Pt not seen or examined. Chart reviewed. Per most recent provider note, pt monchogino estrella to feel better. She has had no fever. She had MRI of the spine that showed no evidence of vertebral osteomyelitis/discitis to account for the L iliopsoas abscess. Last recorded drain output was 50 on 09/07 and 60 this morning 09/08/19. BCx negative x 72h from 09/04/19. Culture from iliopsoas abscess upon drain placement on 09/05/19 has 1+ GPCs on Gram stain and few small GNRs; growth thus far is 1 colony of gram positive cocci in clusters, yet to be identified. Impression/Recommendations MSSA bacteremia, complicated by development of L iliopsoas abscess, s/p drainage - MARCELLA at [facility] reported negative; MRI spine negative for evidence of a pyogenic spondylodiscitis as the source of the iliopsoas abscess. - Infected hip arthroplasty can be associated with secondary psoas abscess, but if she has no hip pain (none reported in ED provider note, H&PMD progress note), it may not be involved. The iliopsoas muscle can become seeded from Staph aureus bacteremia without a contiguous focus also being present; this appears to be the case here. - I do not know why "few small Gram negative rods" were noted on Gram stain from the iliopsoas abscess, but it does not fit clinically, and no Gram negatives have grown from the culture. The single colony of GPCs in clusters is likely the same MSSA. - Agree with cefazolin 2 g q8h IV; generally better tolerated with fewer as sociated adverse effects than with nafcillin. - Anticipate drain removal once output drops off to ~10 cc per day over several consecutive days but defer to IR and pt's hospitalist regarding this. - Duration of therapy: Recommend treating for 6 weeks with IV cefazolin 2 g q8h IV as long as creatinine clearance >30 (otherwise, requires renal dose adjustment). Anticipated end date is 10/17/19. PICC line should be removed once IV antibiotic therapy is complete unless otherwise directed by a provider. Monitor CBC and CMP once weekly on IV cefazolin. John Zepeda MD [facility] pager [phone]
[2019-09-08] MEDS ORDERED: ONDANSETRON HCL INJ/PF 4 MG/2 ML SDV IV PRN (13:40)
--- NOTE | 2019-09-08 13:52 | PDOC CONSULTATION ---
Consultation Consult Date: 09/08/19 Provider Consulted: JENA SO JR History of Present Illness Admission Date/PCP: 09/05/19 08:58 LD DE LEÓN History of Present Illness: BRITTNEY GOINS is a 48 year old female with multiple revision left total hip arthroplasties performed by Dr. Sanabria in [place]. This includes a history of prior infection. She has not seen him since approximately 3 months. She presen yoli recently to [facility] and was treated with bacteremia there, had a PICC line placed and was prescribed nafcillin for antibiotic coverage, however she left A and subsequently presented to [place] with recurrent symptoms of malaise and potential bacteremia. After presenting to [place] she had a further work-up and discovered a psoas abscess. Since that time she has had the abscess drained by interventional radiology. She is felt much better however due to the history of her left hip I have been consulted to discuss further management with her. The patient does report feeling much better since admission and drainage and overall has no complaints in regards to her left hip. She says "I have had a hip infection before and this is not it". She has no symptoms in her left hip at this time. Past Medical History Cardiac Medical History: Reports: Hyperlipidema, Hypertension - HX OF, NOT CURRENT Denies: Atrial Fibrillation, Congestive Heart Failure, Coronary Artery Disease, Myocardial Infarction, Peripheral Vascular Disease, Pulmonary Embolism, Heart Murmur Pulmonary Medical History: Reports: Pneumonia - HX OF Denies: Asthma, Bronchitis, Chronic Obstructive Pulmonary Disease (COPD), Respiratory Failure, Sleep Apnea, Tuberculosis Neurological Medical History: Denies: Seizures Endocrine Medical History: Denies: Hyperthyroidism, Hypothyroidism Renal/ Medical History: Denies: End Stage Renal Disease Malignancy Medical History: Denies: Breast Cancer, Cervical Cancer, Leukemia, Lung Cancer, Ovarian Cancer GI Medical History: Reports: Gastroesophageal Reflux Disease Denies: Crohn's Disease, Hepatitis, Hiatal Hernia Musculoskeltal Medical History: Denies: Arthritis, Fibromyalgia Psychiatric Medical History: Reports: Bipolar Disorder, Depression Denies: Dementia, Post Traumatic Stress Disorder Hematology: Reports: Anemia Denies: Hemophilia, Sickle Cell Disease Infectious Medical History: Denies: HIV Past Surgical History Past Surgical History: Reports: Hysterectomy, Orthopedic Surgery - let hip Denies: Amputation, Appendectomy, Section, Cholecystectomy, Colostomy, Coronary Artery Bypass Graft, Gastric Bypass Surgery, Herniorrhaphy, Mastectomy, Pacemaker, Tonsillectomy, Tubal Ligation Social History Smoking Status: Never Smoker Electronic Cigarette use?: No Frequency of Alcohol Use: Heavy Hx Recreational Drug Use: No Drugs: None Hx Prescription Drug Abuse: No - Advance Directive Resuscitation Status: Full Code Family History Family History: Reviewed & Not Pertinent Parental Family History Reviewed: No Children Family History Reviewed: NA Sibling(s) Family History Reviewed.: NA Medication/Allergy Home Medications: Esomeprazole Magnesium [Nexium] 40 mg PO DAILY 11/01/12 Lamotrigine [Lamictal 100 Mg Tablet] 200 mg PO Q12 11/01/12 Zolpidem Tartrate [Ambien 10 mg Tablet] 10 mg PO QHS 11/01/12 Cranberry [Cranberry 500 mg Capsule] 500 mg PO DAILY 08/08/15 Cyanocobalamin (Vitamin B-12) [Vitamin B12] 2,500 mcg PO DAILY 08/08/15 Methylphenidate HCl [Methylphenidate ER] 20 mg PO BID@06,12 08/08/15 Oxycodone HCl 10 mg PO 5XDP PRN 08/08/15 Ubidecarenone [Co Q-10] 100 mg PO DAILY 08/08/15 Acetaminophen [Tylenol Extra Strength 500 mg Tablet] 500 mg PO Q8HP PRN 09/05/19 Ascorbic Acid [Vitamin C 500 mg Tablet] 500 mg PO DAILY 09/05/19 Cholecalciferol (Vitamin D3) [Vitamin D3 5000 unit Capsule] 5,000 unit PO DAILY 09/05/19 Diazepam [Valium 5 mg Tablet] 5 mg PO BID 09/05/19 Docusate Sodium [Colace 100 mg Capsule] 100 mg PO DAILY 09/05/19 Echinacea [Echinacea Herb] 760 mg PO DAILY 09/05/19 Fluoxetine HCl 20 mg PO DAILY 09/05/19 Ibuprofen [Advil] 200 mg PO Q8 09/05/19 Melatonin 3 mg PO QHS 09/05/19 Naloxone HCl [Narcan] 4 mg NASL ASDIR PRN 09/05/19 Potassium Gluconate [Potassium] 99 mg PO DAILY 09/05/19 Ziprasidone HCl [Geodon 40 mg Capsule] 40 mg PO Q12 09/05/19 Allergies/Adverse Reactions: No Known Allergies Allergy (Verified 09/04/19 22:50) Review of Systems Review of Systems: Constitutional: ABSENT: anorexia, chills, night sweats Cardiovascular: ABSENT: chest pain Respiratory: ABSENT: dyspnea Gastrointestinal: ABSENT: vomiting Genitourinary: ABSENT: dysuria Integumentary: ABSENT: rash Neurological: ABSENT: confusion, memory loss, numbness Psychiatric: ABSENT: hallucinations Hematologic/Lymphatic: ABSENT: easy bleeding All negative as above aside from that reported in the HPI and the following: Malaise and "not feeling well" when she initially presented have all but completely resolved at this time. Physical Exam Vital Signs: Temp Pulse Resp BP Pulse Ox 98.3 F 71 16 122/75 98 09/08/19 00:00 09/08/19 00:00 09/08/19 00:00 09/08/19 00:00 09/08/19 00:00 Intake & Output 09/07/19 09/08/19 09/09/19 06:59 06:59 06:59 Intake Total 2187 1408 Output Total 50 60 Balance 2137 1348 Weight 71.8 kg 73.5 kg Physical Exam: General appearance: PRESENT: no acute distress, cooperative, well-nourished Head exam: PRESENT: atraumatic, normocephalic Eye exam: PRESENT: EOMI Ear exam: PRESENT: normal external ear exam Mouth exam: PRESENT: neck supple Neck exam: ABSENT: tracheal deviation Respiratory exam: PRESENT: symmetrical, unlabored. ABSENT: accessory muscle use, wheezes Pulses: PRESENT: normal radial pulses, normal dorsalis pedis pulse Vascular exam: PRESENT: normal capillary refill GI/Abdominal exam: ABSENT: distended, firm Extremities exam: PRESENT: full ROM of bilateral shoulders, elbows wrists, knees, hips and ankles without pain Musculoskeletal exam: PRESENT: full ROM, normal inspection of all 4 extremities aside from that noted below. Neurological exam: PRESENT: alert, awake, oriented to person, oriented to place, oriented to time Psychiatric exam: PRESENT: appropriate affect. ABSENT: agitated Focused psych exam: ABSENT: catatonic Skin exam: PRESENT: intact. ABSENT: dry All as above aside from that noted in the HPI and the following: Left lower extremity -Pulses 2+ distally -Compartments soft -Her prior incision is well-healed without any signs of infection erythema or drainage -Sensation grossly intact to L3-4-5 S1 -Motor grossly intact to gastroc and quad, she has a prior foot drop from the last revision surgery on her hip and has no motor function to EHL or TA - Able to perform quad extension and elevate heel off of bed. -No pain with logroll Results Laboratory Results: 09/07/19 19:30 09/07/19 07:25 09/07/19 09/07/19 10:29 19:30 WBC 4.0 RBC 2.18 L Hgb 8.1 L Hct 23.9 L MCV 110 H D MCH 37.1 H MCHC 33.8 RDW 20.7 H Plt Count 767 H Seg Neutrophils % Not Reportable Blood Type O NEGATIVE Antibody Screen NEGATIVE 09/04/19 09/04/19 17:44 17:44 Creatine Kinase < 20 L Troponin I < 0.012 Impressions: Chest X-Ray 09/04/19 16:47 IMPRESSION: NO ACUTE RADIOGRAPHIC FINDING IN THE CHEST. Retroperitoneal Abscess Drainage 09/05/19 00:00 IMPRESSION: Successful CT-guided catheter placement for drainage of the left psoas abscess. Pelvis X-Ray 09/07/19 00:00 IMPRESSION: SATISFACTORY POSTOPERATIVE PELVIS. Abdomen/Pelvis CT 09/07/19 07:00 IMPRESSION: Successful drainage of iliopsoas fluid collection status post placement of percutaneous drain. Lumbar Spine MRI 09/07/19 15:22 IMPRESSION: No evidence of osteomyelitis. Spondylosis and facet arthropathy. Mild spinal stenosis. Cervical Spine MRI 09/07/19 15:23 IMPRESSION: Degenerative disc disease worse at C4-5 and C5-6 as above. No evidence to suggest discitis or osteomyelitis is noted in the cervical spine. Thoracic Spine MRI 09/07/19 15:23 IMPRESSION: No acute findings. No evidence of osteomyelitis or abscess. Assessment & Plan - Diagnosis (1) Iliopsoas abscess on left Is this a current diagnosis for this admission?: Yes Plan: At this time she has had much improvement from the drainage of the iliopsoas abscess. I would continue to follow recommendations of interventional radiology and infectious disease in regards to when to pull the drain. -In regards to her left total hip arthroplasty there is no current signs of collection or infection in that hip and I would avoid introducing needles or any other interventional treatment to the left hip arthroplasty and any potential of introducing infection into that hip even for diagnostic purposes unless warranted by further medical decline. She has had a complicated history of multiple surgeries treated by Dr. Sanabria in [place] and given that she is not emergently sick I would encourage her upon discharge to return to him for further follow-up. If she fails to improve or there is any new symptoms or signs of hip infection aspiration could be performed but I would request to be contacted prior to that decision being made. -I had a long conversation with the patient regards to her disease course and the potential for any infection in that hip as well as the risks of any further work-up and she is in agreement with the plan. She does intend to follow Dr. Sanabria at her next available time
--- NOTE | 2019-09-08 14:18 | PDOC PROGRESS REPORT ---
Subjective Progress Note for:: 09/08/19 Subjective:: This is a 48-year-old female who was admitted for a left iliopsoas abscess. Patient underwent drainage by IR yesterday. 09/06: She feels much better today. Denies chest pain or shortness of breath. On encounter this morning, drainage appears to be serosanguineous. Cultures pending. Reviewed records for [facility]. She was thought to have urinary tract infection during her recent course. She grew staph aureus on the blood but I do not see the results of sensitivity. She also had a TTE and a MARCELLA which were negative for vegetations. 09/07: She says she continues to feel better and her abdominal pain has significantly improved. Repeat CT today and will have IR re-evaluate for possible removal of drain. 09/08: No acute event overnight. Denies acute complaints. She continues to improve and feels better. Appreciate ID recommendations. Discussed case in length with orthopedics. Reason For Visit: PSOAS ABSCESS Physical Exam Vital Signs: Temp Pulse Resp BP Pulse Ox 98.3 F 71 16 122/75 98 09/08/19 00:00 09/08/19 00:00 09/08/19 00:00 09/08/19 00:00 09/08/19 00:00 Intake & Output 09/07/19 09/08/19 09/09/19 06:59 06:59 06:59 Intake Total 2187 1408 Output Total 50 60 Balance 2137 1348 Weight 158 lb 4.67 oz 162 lb 0.636 oz General appearance: PRESENT: no acute distress, well-developed, well-nourished Head exam: PRESENT: atraumatic, normocephalic Eye exam: PRESENT: conjunctiva pink, EOMI, PERRLA. ABSENT: scleral icterus Ear exam: PRESENT: normal external ear exam Mouth exam: PRESENT: moist, tongue midline Neck exam: ABSENT: carotid bruit, JVD, lymphadenopathy, thyromegaly Respiratory exam: PRESENT: clear to auscultation rhona. ABSENT: rales, rhonchi, wheezes Cardiovascular exam: PRESENT: RRR. ABSENT: diastolic murmur, rubs, systolic murmur Pulses: PRESENT: normal dorsalis pedis pul GI/Abdominal exam: PRESENT: normal bowel sounds, soft. ABSENT: distended, guarding, mass, organolmegaly, rebound, tenderness Rectal exam: PRESENT: deferred Extremities exam: PRESENT: full ROM. ABSENT: calf tenderness, clubbing, pedal edema Neurological exam: PRESENT: alert, awake, oriented to person, oriented to place, oriented to time, oriented to situation, CN II-XII grossly intact. ABSENT: motor sensory deficit Results Laboratory Results: 09/07/19 19:30 09/07/19 07:25 09/07/19 09/07/19 10:29 19:30 WBC 4.0 RBC 2.18 L Hgb 8.1 L Hct 23.9 L MCV 110 H D MCH 37.1 H MCHC 33.8 RDW 20.7 H Plt Count 767 H Seg Neutrophils % Not Reportable Blood Type O NEGATIVE Antibody Screen NEGATIVE 09/04/19 09/04/19 17:44 17:44 Creatine Kinase < 20 L Troponin I < 0.012 Impressions: Chest X-Ray 09/04/19 16:47 IMPRESSION: NO ACUTE RADIOGRAPHIC FINDING IN THE CHEST. Retroperitoneal Abscess Drainage 09/05/19 00:00 IMPRESSION: Successful CT-guided catheter placement for drainage of the left psoas abscess. Pelvis X-Ray 09/07/19 00:00 IMPRESSION: SATISFACTORY POSTOPERATIVE PELVIS. Abdomen/Pelvis CT 09/07/19 07:00 IMPRESSION: Successful drainage of iliopsoas fluid collection status post placement of percutaneous drain. Lumbar Spine MRI 09/07/19 15:22 IMPRESSION: No evidence of osteomyelitis. Spondylosis and facet arthropathy. Mild spinal stenosis. Cervical Spine MRI 09/07/19 15:23 IMPRESSION: Degenerative disc disease worse at C4-5 and C5-6 as above. No evidence to suggest discitis or osteomyelitis is noted in the cervical spine. Thoracic Spine MRI 09/07/19 15:23 IMPRESSION: No acute findings. No evidence of osteomyelitis or abscess. Assessment and Plan - Diagnosis (1) Iliopsoas abscess on left Is this a current diagnosis for this admission?: Yes Plan: S/P Drainage by IR. Masood Valencia. Cultures pending. Will also await for further ID recommendations. 09/07: Repeat CT today and will have IR re-evaluate for possible removal of drain. 09/08: Whole spine MRI unremarkable for spinal abscess osteomyelitis. Appreciate ID recommendations. Patient reports she felt sick with nafcillin and was unable tolerated. Was switched to Ancef. Drainage culture is growing gram-positive cocci. Follow-up on sensitivity reports from [facility]. Discussed case in length with orthopedics. (2) Bipolar disorder Is this a current diagnosis for this admission?: Yes Plan: Resumed home meds. (3) Staphylococcus aureus bacteremia Is this a current diagnosis for this admission?: Yes Plan: Follow up on sensitivity report. - Time Time Spent with patient: 25-34 minutes
[2019-09-08] MEDS: CEFAZOLIN SODIUM 2 GM in DEXTROSE 5%-WATER 100 ML IV SCH ×2 (14:41→22:45)
[2019-09-08 14:47] LABS: ABSOLUTE RETICS # 0.035 10^6/uL (0.028-0.122)
[2019-09-08 21:00] LABS: IRON(TIBC) 21.4 ug/dL (37-170)
[2019-09-08 22:08] LABS: FOLATE 6.65 ng/mL (>2.76)
[2019-09-08] MEDS: ZOLPIDEM TARTRATE 5 MG TABLET PO SCH (22:45)
[2019-09-08] MEDS: MELATONIN 3 MG TABLET PO SCH (22:45)
[2019-09-09] MEDS: OXYCODONE HCL IR 5 MG TABLET PO PRN (05:47)
[2019-09-09] MEDS: PANTOPRAZOLE SODIUM 40 MG TABLET.DR PO SCH (05:48)
[2019-09-09] MEDS: CEFAZOLIN SODIUM 2 GM in DEXTROSE 5%-WATER 100 ML IV SCH (05:49)
[2019-09-09] MEDS: HEPARIN SOD (PORCINE) 5,000 UNIT/ML 1 ML VIAL SUBCUT SCH (06:15)
--- NOTE | 2019-09-09 08:02 | PDOC PROGRESS REPORT ---
Subjective Progress Note for:: 09/09/19 Subjective:: Patient continues to feel well. I had a conversation with her and family member in the room and they are in agreement with the current plan. There is no new symptoms and they are likely to return home today. She is otherwise without new complaints and reports feeling much better since the time of her admission. She denies any symptoms in her left hip at this time Reason For Visit: PSOAS ABSCESS Physical Exam Vital Signs: Temp Pulse Resp BP Pulse Ox 98.5 F 77 18 123/71 97 09/09/19 01:29 09/09/19 01:29 09/09/19 01:29 09/09/19 01:29 09/09/19 01:29 Intake & Output 09/08/19 09/09/19 09/10/19 06:59 06:59 06:59 Intake Total 1408 1436 Output Total 60 60 Balance 1348 1376 Weight 73.5 kg Physical Exam: Left lower extremity -Pulses 2+ distally -Compartments soft -Sensation grossly intact to L3-4-5 S1 -Motor grossly intact to EHL TA gastroc and quad - Able to perform quad extension and elevate heel off of bed. Results Laboratory Results: 09/07/19 19:30 09/07/19 07:25 09/07/19 09/08/19 19:30 20:19 Retic Count (auto) 1.60 Iron 21.4 L TIBC 161 L % Saturation 13 Ferritin 360.00 H Vitamin B12 > 1000.0 H Folate 6.65 09/04/19 09/04/19 17:44 17:44 Creatine Kinase < 20 L Troponin I < 0.012 Impressions: Chest X-Ray 09/04/19 16:47 IMPRESSION: NO ACUTE RADIOGRAPHIC FINDING IN THE CHEST. Retroperitoneal Abscess Drainage 09/05/19 00:00 IMPRESSION: Successful CT-guided catheter placement for drainage of the left psoas abscess. Pelvis X-Ray 09/07/19 00:00 IMPRESSION: SATISFACTORY POSTOPERATIVE PELVIS. Abdomen/Pelvis CT 09/07/19 07:00 IMPRESSION: Successful drainage of iliopsoas fluid collection status post placement of percutaneous drain. Lumbar Spine MRI 09/07/19 15:22 IMPRESSION: No evidence of osteomyelitis. Spondylosis and facet arthropathy. Mild spinal stenosis. Cervical Spine MRI 09/07/19 15:23 IMPRESSION: Degenerative disc disease worse at C4-5 and C5-6 as above. No evidence to suggest discitis or osteomyelitis is noted in the cervical spine. Thoracic Spine MRI 09/07/19 15:23 IMPRESSION: No acute findings. No evidence of osteomyelitis or abscess. Assessment & Plan - Diagnosis (1) Iliopsoas abscess on left Is this a current diagnosis for this admission?: Yes Plan: The patient is not showing signs of current infection in the left hip, nor she have any emergent bacteremia or current signs of sepsis that would require further exploration or intervention regards to her left hip. -Would recommend treating the so as abscess is an isolated source, per the recommendations of infectious disease and interventional radiology -the patient should return to her prior total hip surgeon in the following weeks for maintenance evaluation - Time Time Spent with patient: Less than 15 minutes
[2019-09-09 09:41] VITALS: BP 122/75
[2019-09-09] MEDS ORDERED: FERROUS SULFATE 325 MG TABLET PO SCH (10:00)
[2019-09-09] MEDS ORDERED: INFLUENZA QUAD (6MOS+) 2019-20 VAC 0.5 ML SYR IM ONE (11:00)
[2019-09-09] MEDS: LAMOTRIGINE 100 MG TABLET PO SCH (11:23)
[2019-09-09] MEDS: FLUOXETINE HCL 20 MG CAPSULE PO SCH (11:23)
[2019-09-09] MEDS: CYANOCOBALAMIN (VITAMIN B-12) 1,000 MCG TABLET PO SCH (11:23)
[2019-09-09] MEDS: ASCORBIC ACID 500 MG TABLET PO SCH (11:23)
[2019-09-09] MEDS: DOCUSATE SODIUM 100 MG CAPSULE PO SCH (11:24)
[2019-09-09] MEDS: ZIPRASIDONE HCL 40 MG CAPSULE PO SCH (11:24)
[2019-09-09] MEDS: DIAZEPAM 5 MG TABLET PO SCH (11:24)
--- NOTE | 2019-09-09 18:58 | PDOC DISCHARGE SUMMARY ---
Impression - Admit/DC Date/PCP Admission Date/Primary Care Provider: 09/05/19 08:58 LD DE LEÓN Discharge Date: 09/09/19 - Discharge Diagnosis (1) Iliopsoas abscess on left Is this a current diagnosis for this admission?: Yes (2) Bipolar disorder Is this a current diagnosis for this admission?: Yes (3) Staphylococcus aureus bacteremia Is this a current diagnosis for this admission?: Yes - Additional Information Resuscitation Status: Full Code Discharge Diet: As Tolerated Discharge Activity: Activity As Tolerated Referrals: [facility] [Provider Group] - 09/14/19 4:20 pm () [facility] [Provider Group] - 09/13/19 10:00 am (CHECK IN AT [facility] AT [facility] FIRST FLOOR) LEFTY MARTINEZ MD [NO LOCAL MD] - 09/15/19 10:20 am Prescriptions: Cefazolin Sodium [Ancef Inj 1 gm Vial] 2 gm IV Q8 39 Days #234 vial Ferrous Sulfate [Feosol 325 mg Tablet] 325 mg PO BIDPCBS #60 tablet Home Medications: Esomeprazole Magnesium [Nexium] 40 mg PO DAILY 11/01/12 Lamotrigine [Lamictal 100 mg Tablet] 200 mg PO Q12 11/01/12 Zolpidem Tartrate [Ambien 10 mg Tablet] 10 mg PO QHS 11/01/12 Cranberry [Cranberry 500 mg Capsule] 500 mg PO DAILY 08/08/15 Cyanocobalamin (Vitamin B-12) [Vitamin B12] 2,500 mcg PO DAILY 08/08/15 Methylphenidate HCl [Methylphenidate ER] 20 mg PO BID@06,12 08/08/15 Oxycodone HCl 10 mg PO 5XDP PRN 08/08/15 Ubidecarenone [Co Q-10] 100 mg PO DAILY 08/08/15 Acetaminophen [Tylenol Extra Strength 500 mg Tablet] 500 mg PO Q8HP PRN 09/05/19 Ascorbic Acid [Vitamin C 500 mg Tablet] 500 mg PO DAILY 09/05/19 Cholecalciferol (Vitamin D3) [Vitamin D3 5000 unit Capsule] 5,000 unit PO DAILY 09/05/19 Diazepam [Valium 5 mg Tablet] 5 mg PO BID 09/05/19 Docusate Sodium [Colace 100 mg Capsule] 100 mg PO DAILY 09/05/19 Fluoxetine HCl 20 mg PO DAILY 09/05/19 Ibuprofen [Advil] 200 mg PO Q8 09/05/19 Melatonin 3 mg PO QHS 09/05/19 Naloxone HCl [Narcan] 4 mg NASL ASDIR PRN 09/05/19 Potassium Gluconate [Potassium] 99 mg PO DAILY 09/05/19 Ziprasidone HCl [Geodon 40 mg Capsule] 40 mg PO Q12 09/05/19 Cefazolin Sodium [Ancef Inj 1 gm Vial] 2 gm IV Q8 39 Days #234 vial 09/09/19 Ferrous Sulfate [Feosol 325 mg Tablet] 325 mg PO BIDPCBS #60 tablet 09/09/19 History of Present Illiness History of Present Illness: BRITTNEY GOINS is a 48 year old female with a past medical history of depression and bipolar disorder who presented with increasing abdominal pain. Patient was recently admitted at the [facility]. She apparently left AMA and was discharged with a PICC line and to complete IV nafcillin therapy at home for Staphylococcus bacteremia. She presented to the ER with complaints of " not feeling well" and increasing left lower abdominal pain. She denies fever or chills at home. In the ER, she was noted to have a left psoas abscess. Hospital Course Hospital Course: This is a 48-year-old female who was admitted for a left iliopsoas abscess. Patient underwent drainage by IR and had a pelvic drain placed. She was started on IV Zosyn. Infectious disease was also consulted. Records from [facility] were obtained as she left AMA there. Patient was initially admitted to the ER for sepsis suspected to be from a UTI. She grew MSSA on the blood but definite etiology was not determined. She was sent home on a PICC line with IV nafcillin. She underwent a TTE and a MARCELLA at the [facility] both of which were negative for vegetations. Infectious disease was consulted. MRI of the whole spine was also obtained to rule out any spinal infections which could be a possible source of psoas abscess. Spinal MRI was unremarkable. Orthopedics consult was also recommended as she does have a complicated history of left hip surgeries. Patient had multiple, complex left hip surgeries, total of 6 surgeries in the course of 6 years. She did significantly improve return to her baseline. Discussed in length with orthopedics. Although there is a possibility that left hip infection could be the source of the psoas abscess, patient does not complain of any left hip pain or tenderness or limitation of motion. She has responded well to IV antibiotics. Repeat CT of the abdomen and pelvis was also demonstrated that the psoas abscess was well evacuated. Blood cultures have also showed clearance of bacteremia. Orthopedics discussed in length with patient and . Recommendation is to complete the IV antibiotics as per ID recommendations and have patient closely follow-up with her orthopedic surgeon in [place]. She sees Dr. Johnson which have done all her hip surgeries. Discussed that if she has recurrence of psoas abscess in the future, left hip arthrocentesis should be then pursued and she will likely need operative intervention of her left knee. Patient did express she would rather closely follow-up with her own orthopedic surgeon and not pursue left hip arthrocentesis at this time. She was given a confirmed appointment with Dr. Keven Zarate next week. She was also given confirmed appointments with her PCP at the [facility] and radiology for possible removal of her pelvic drain. Output from the drainage has significantly decreased in the past few days. ID recommends keeping the drain and have it remove after output has come down to ~10 cc/day in the next few days. Home health was set for her to complete IV antibiotics. If she ever develops recurrence of her psoas abscess in the future, she should be transferred to [facility] where she will be managed by her orthopedic surgeon due to the multiple complex left hip surgery she had there. Physical Exam Vital Signs: Temp Pulse Resp BP Pulse Ox 98.4 F 76 12 122/75 99 09/09/19 09:34 09/09/19 09:34 09/09/19 09:34 09/09/19 09:34 09/09/19 09:34 Intake & Output 09/08/19 09/09/19 09/10/19 06:59 06:59 06:59 Intake Total 1408 1536 Output Total 60 80 Balance 1348 1456 Weight 162 lb 0.636 oz 162 lb 0.636 oz General appearance: PRESENT: no acute distress, well-developed, well-nourished Head exam: PRESENT: atraumatic, normocephalic Eye exam: PRESENT: conjunctiva pink, EOMI, PERRLA. ABSENT: scleral icterus Ear exam: PRESENT: normal external ear exam Mouth exam: PRESENT: moist, tongue midline Neck exam: ABSENT: carotid bruit, JVD, lymphadenopathy, thyromegaly Respiratory exam: PRESENT: clear to auscultation rhona. ABSENT: rales, rhonchi, wheezes Cardiovascular exam: PRESENT: RRR. ABSENT: diastolic murmur, rubs, systolic murmur Pulses: PRESENT: normal dorsalis pedis pul GI/Abdominal exam: PRESENT: normal bowel sounds, soft. ABSENT: distended, guarding, mass, organolmegaly, rebound, tenderness Rectal exam: PRESENT: deferred Extremities exam: PRESENT: full ROM. ABSENT: calf tenderness, clubbing, pedal edema Neurological exam: PRESENT: alert, awake, oriented to person, oriented to place, oriented to time, oriented to situation, CN II-XII grossly intact. ABSENT: motor sensory deficit Results Laboratory Results: WBC 4.0 10^3/uL (4.0-10.5) 09/07/19 19:30 RBC 2.18 10^6/uL (3.72-5.28) L 09/07/19 19: Hgb 8.1 g/dL (12.0-15.5) L 09/07/19 19:30 Hct 23.9 % (36.0-47.0) L 09/07/19 19:30 MCV 110 fl (80-97) H D 09/07/19 19: MCH 37.1 pg (27.0-33.4) H 09/07/19 19:30 MCHC 33.8 g/dL (32.0-36.0) 09/07/19: RDW 20.7 % (11.5-14.0) H 09/07/19 19:30 Plt Count 767 10^3/uL (150-450) H 09/07/19 19:30 Lymph % (Auto) Not Reportable 09/07/19:30 [place] % (Auto) Not Reportable 09/07/19: Eos % (Auto) Not Reportable 09/07/19:30 Baso % (Auto) Not Reportable 09/07/19:30 Reticulocyte # 0.035 10^6/uL (0.028-0.122) 09/07/19: Absolute Neuts (auto) Not Reportable 01/15/20 19:30 Absolute Lymphs (auto) Not Reportable 09/07/19 19:30 Absolute Monos (auto) Not Reportable 09/07/19 19:30 Absolute Eos (auto) Not Reportable 09/07/19 19:30 Absolute Basos (auto) Not Reportable 09/07/19 19:30 Total Counted 100 09/07/19 19:30 Seg Neutrophils % Not Reportable 09/07/19 19:30 Seg Neuts % (Manual) 33 % (42-78) L 09/07/19 19:30 Lymphocytes % (Manual) 58 % (13-45) H 09/07/19 19:30 Monocytes % (Manual) 6 % (3-13) 09/07/19 19:30 Eosinophils % (Manual) 3 % (0-6) 09/07/19 19:30 Basophils % (Manual) 0 % (0-2) 09/07/19 19:30 Abs Neuts (Manual) 1.3 10^3/uL (1.7-8.2) L 09/07/19 19:30 Abs Lymphs (Manual) 2.3 10^3/uL (0.5-4.7) 09/07/19 19:30 Abs Monocytes (Manual) 0.2 10^3/uL (0.1-1.4) 09/07/19 19:30 Absolute Eos (Manual) 0.1 10^3/uL (0.0-0.6) 09/07/19 19:30 Abs Basophils (Manual) 0.0 10^3/uL (0.0-0.2) 09/07/19 19:30 Toxic Vacuolation PRESENT 09/07/19 07:25 Platelet Comment INCREASED 09/07/19 19:30 Polychromasia SLIGHT 09/07/19 07:25 Hypochromasia SLIGHT 09/07/19 19:30 Anisocytosis 2+ 09/07/19 19:30 Macrocytosis 2+ 09/07/19 19:30 Tear Drop Cells SLIGHT 09/07/19 07:25 Ovalocytes SLIGHT 09/07/19 07:25 Retic Count (auto) 1.60 % (0.66-2.85) 09/07/19 19:30 PT 14.8 SEC (11.4-15.4) 09/05/19 02:43 INR 1.15 09/05/19 02:43 APTT 58.4 SEC (23.5-35.8) H 09/05/19 02:43 VBG pH 7.28 (7.30-7.42) L 09/04/19 20:55 VBG pCO2 31.6 mmHg (35-63) L 09/04/19 20:55 VBG HCO3 14.5 mmol/L (20-32) L 09/04/19 20:55 VBG Base Excess -10.9 mmol/L 09/04/19 20:55 Sodium 141.5 mmol/L (137-145) 09/07/19 07:25 Potassium 3.8 mmol/L (3.6-5.0) 09/07/19 07:25 Chloride 117 mmol/L (98-107) H 09/07/19 07:25 Carbon Dioxide 16 mmol/L (22-30) L 09/07/19 07:25 Anion Gap 9 (5-19) 09/07/19 07:25 BUN 5 mg/dL (7-20) L 09/07/19 07:25 Creatinine 0.74 mg/dL (0.52-1.25) 09/07/19 07:25 Est GFR ( Amer) > 60 (>60) 09/07/19 07:25 Est GFR (MDRD) Non-Af > 60 (>60) 09/07/19 07:25 Glucose 74 mg/dL (75-110) L 09/07/19 07:25 POC Glucose 93 mg/dL (70-110) 09/06/19 08:31 Lactic Acid < 0.5 mmol/L (0.7-2.1) L 09/05/19 08:35 Calcium 8.2 mg/dL (8.4-10.2) L 09/07/19 07:25 Iron 21.4 ug/dL (37-170) L 09/08/19 20:19 TIBC 161 ug/dL (250-450) L 09/08/19 20:19 % Saturation 13 % 09/08/19 20:19 Ferritin 360.00 ng/mL (6.2-137.0) H 09/08/19 20:19 Total Bilirubin 0.5 mg/dL (0.2-1.3) 09/07/19 07:25 Direct Bilirubin 0.5 mg/dL (0.0-0.4) H 09/07/19 07:25 Neonat Total Bilirubin Not Reportable 09/07/19 07:25 Neonat Direct Bilirubin Not Reportable 09/07/19 07:25 Neonat Indirect Bili Not Reportable 09/07/19 07:25 AST 14 U/L (14-36) 09/07/19 07:25 ALT 19 U/L (<35) 09/07/19 07:25 Alkaline Phosphatase 198 U/L (38-126) H 09/07/19 07:25 Creatine Kinase < 20 U/L (30-135) L 09/04/19 17:44 Troponin I < 0.012 ng/mL 09/04/19 17:44 Total Protein 4.6 g/dL (6.3-8.2) L 09/07/19 07:25 Albumin 2.1 g/dL (3.5-5.0) L 09/07/19 07:25 Vitamin B12 > 1000.0 pg/mL (239-931) H 09/08/19 20:19 Folate 6.65 ng/mL (>2.76) 09/08/19 20:19 Urine Color YELLOW 09/04/19 18:29 Urine Appearance SLIGHTLY-CLOUDY 09/04/19 18:29 Urine pH 5.0 (5.0-9.0) 09/04/19 18:29 Ur Specific [place] 1.032 09/04/19 18:29 Urine Protein 30 mg/dL (NEGATIVE) H 09/04/19 18:29 Urine Glucose (UA) NEGATIVE mg/dL (NEGATIVE) 09/04/19 18:29 Urine Ketones TRACE mg/dL (NEGATIVE) H 09/04/19 18:29 Urine Blood NEGATIVE (NEGATIVE) 09/04/19 18:29 Urine Nitrite NEGATIVE (NEGATIVE) 09/04/19 18:29 Urine Bilirubin NEGATIVE (NEGATIVE) 09/04/19 18:29 Urine Urobilinogen NEGATIVE mg/dL (<2.0) 09/04/19 18:29 Ur Leukocyte Esterase TRACE (NEGATIVE) H 09/04/19 18:29 Urine WBC (Auto) 11 /HPF 09/04/19 18:29 Urine RBC (Auto) 1 /HPF 09/04/19 18:29 Squamous Epi Cells Auto 5 /HPF 09/04/19 18:29 Urine Mucus (Auto) RARE /LPF 09/04/19 18:29 Urine Ascorbic Acid 40 (NEGATIVE) H 09/04/19 18:29 Urine Opiates Screen NEGATIVE 09/04/19 18:29 Urine Methadone Screen NEGATIVE 09/04/19 18:29 Ur Barbiturates Screen NEGATIVE 09/04/19 18:29 Ur Phencyclidine Scrn NEGATIVE 09/04/19 18:29 Ur Amphetamines Screen NEGATIVE 09/04/19 18:29 U Benzodiazepines Scrn UNCONFIRMED POSITIVE 09/04/19 18:29 Urine Cocaine Screen NEGATIVE 09/04/19 18:29 U Marijuana (THC) Screen NEGATIVE 09/04/19 18:29 Slides for Path Review PATHOLOGIST REVIEWED 09/04/19 17:44 Blood Type O NEGATIVE 09/07/19 10:29 Antibody Screen NEGATIVE 09/07/19 10:29 Crossmatch See Detail 09/07/19 10:29 09/04/19 17:44 Troponin I < 0.012 Impressions: Chest X-Ray 09/04/19 16:47 IMPRESSION: NO ACUTE RADIOGRAPHIC FINDING IN THE CHEST. Abdomen/Pelvis CT 09/04/19 20:01 IMPRESSION: Left iliopsoas abscess is noted. Retroperitoneal Abscess Drainage 09/05/19 00:00 IMPRESSION: Successful CT-guided catheter placement for drainage of the left psoas abscess. Pelvis X-Ray 09/07/19 00:00 IMPRESSION: SATISFACTORY POSTOPERATIVE PELVIS. Abdomen/Pelvis CT 09/07/19 07:00 IMPRESSION: Successful drainage of iliopsoas fluid collection status post placement of percutaneous drain. Lumbar Spine MRI 09/07/19 15:22 IMPRESSION: No evidence of osteomyelitis. Spondylosis and facet arthropathy. Mild spinal stenosis. Cervical Spine MRI 09/07/19 15:23 IMPRESSION: Degenerative disc disease worse at C4-5 and C5-6 as above. No evidence to suggest discitis or osteomyelitis is noted in the cervical spine. Thoracic Spine MRI 09/07/19 15:23 IMPRESSION: No acute findings. No evidence of osteomyelitis or abscess. Stroke Is this a Stroke Patient?: No Acute Heart Failure - Is this a Heart Failure Patient?: No
== END 2019-09-09 11:28 | disposition home or self-care (01) | DRG 372 ==
LOC: ER 16:23 → EH 09-05 08:58 → OBSVTOIN 09-05 08:58 → INTOOBSV 09-05 08:58 → 5 09-05 15:34
PROVIDERS: ADMIT Internal Medicine; ATTEND Internal Medicine
PROC: 0K9P30Z Drainage of Left Hip Muscle with Drainage Device, Percutaneous Approach (ICD-10-PCS; principal; 2019-09-05)
PROC: 3E02340 Introduction of Influenza Vaccine into Muscle, Percutaneous Approach (ICD-10-PCS; 2019-09-09)
DX: K68.12 Psoas muscle abscess (principal); R78.81 Bacteremia; E87.2 Acidosis; B95.61 Methicillin susceptible Staphylococcus aureus infection as the cause of diseases classified elsewhere; I10 Essential (primary) hypertension; F31.9 Bipolar disorder, unspecified; F41.9 Anxiety disorder, unspecified; D47.3 Essential (hemorrhagic) thrombocythemia; Z90.710 Acquired absence of both cervix and uterus; Z96.642 Presence of left artificial hip joint; Z23 Encounter for immunization
CPT/HCPCS: 36415; 36430; 49406; 71046; 72141; 72146; 72148; 72170; 74177; 80053; 80307; 81001; 82550; 82607; 82728; 82746; 82803; 82962; 83540; 83550; 83605; 84484; 85025; 85045; 85610; 85730; 86850; 86900; 86901; 86920; 87040; 87070; 87075; 87077; 87086; 87186; 87205; 90686; 93005; 93010; 96361; 96365; 96367; 96375; 96376; 99285; C1729; C1769; C1894; J0690; J1642; J1644; J2250; J2270; J2543; J2997; J3010; J3370; J3490; J7030; J7040; J7050; J7060; P9016; S0119

== ENCOUNTER → 2019-09-13 | Outpatient (CLI) | payer OTHER | LOC: RAD 13:07 | DX: Z53.9 Procedure and treatment not carried out, unspecified reason (principal) ==